=== PATIENT | female | born 1940 | race Caucasian/White ===

== ENCOUNTER → 2018-08-13 | Outpatient (CLI) | payer MEDICARE ==
--- NOTE | 2018-08-14 10:58 | MM ---
Reason for exam: screening (asymptomatic). Last mammogram was performed 1 year and 4 months ago. History: Patient is postmenopausal. Family history of breast cancer in 2 maternal aunts. Benign excisional biopsy of the right breast. Took estrogen beginning at age 36. Physical Findings: A clinical breast exam by your physician is recommended on an annual basis and results should be correlated with mammographic findings. MG Screening Mammo w CAD Bilateral CC and MLO view(s) were taken. Prior study comparison: April 22, 2017, bilateral MG 3d screening mammo w/cad. November 07, 2015, bilateral MG 3d screening mammo w/cad. The breast tissue is heterogeneously dense. This may lower the sensitivity of mammography. Benign appearing bilateral calcifications. No suspicious abnormality. No significant changes when compared with prior studies. ASSESSMENT: Benign, BI-RAD 2 RECOMMENDATION: Routine screening mammogram of both breasts in 1 year.
== END | disposition home or self-care (01) ==
LOC: RADMAMWWP 09:33
PROVIDERS: ATTEND Family Medicine
DX: Z12.31 Encounter for screening mammogram for malignant neoplasm of breast (principal)
CPT/HCPCS: 77067

== ENCOUNTER → 2020-02-24 | Outpatient (CLI) | payer MEDICARE ==
--- NOTE | 2020-02-24 08:25 | CT ---
EXAMINATION TYPE: CT brain wo con DATE OF EXAM: 02/24/2020 HISTORY: Numbness and weakness to extremities, feels sense of falling. CT DLP: 945.5 mGycm. Automated Exposure Control for Dose Reduction was Utilized. TECHNIQUE: CT scan of the head is performed without contrast. COMPARISON: None. FINDINGS: There is no acute intracranial hemorrhage or midline shift identified. There is diffuse v entricular and sulcal prominence consistent with diffuse age-related cerebral atrophy. There is low- attenuation in the periventricular white matter most likely on basis of product of chronic small vess el ischemic change in patient of this age. Hyperostosis frontalis. Moderate calcified plaque suprac linoid segment left internal carotid artery. Visualized paranasal sinuses are clear. Visualized globe s are intact bilaterally. IMPRESSION: No acute intracranial hemorrhage or midline shift. There is mild diffuse age-related ce rebral atrophy and moderate chronic small vessel ischemic change noted.
== END | disposition home or self-care (01) ==
LOC: RADCTMAIN 07:45
PROVIDERS: ATTEND Psychiatry & Neurology Neurology
DX: I67.82 Cerebral ischemia (principal); G31.1 Senile degeneration of brain, not elsewhere classified
CPT/HCPCS: 70450

== ENCOUNTER → 2023-03-08 | Outpatient (CLI) | payer MEDICARE ==
--- NOTE | 2023-03-08 11:50 | XR ---
EXAMINATION TYPE: XR chest 2V DATE OF EXAM: 03/08/2023 COMPARISON: 10/31/2015 HISTORY: Shortness of breath TECHNIQUE: Frontal and lateral views of the chest are obtained. FINDINGS: Scattered senescent parenchymal changes noted. Hyperinflation compatible with COPD. No evidence for infiltrate. No evidence for atelectasis. Heart size is stable. Mediastinal structures are stable and grossly unremarkable. No evidence for hilar prominence. Degenerative changes dorsal spine. IMPRESSION: 1. No evidence for acute pulmonary disease.
== END | disposition home or self-care (01) ==
LOC: LABWHC1 11:25
PROVIDERS: ATTEND Family Medicine
DX: R05.9 Cough, unspecified (principal); R06.02 Shortness of breath
CPT/HCPCS: 71046

== ENCOUNTER 2023-04-27 11:38 | Observation (INO) | payer MEDICARE ==
[2023-04-27] MEDS ORDERED: SODIUM CHLORIDE 0.9% 1,000 ML IV STA (12:24)
[2023-04-27] MEDS ORDERED: PANTOPRAZOLE 40 MG/10 ML VIAL IVP STA (12:24)
--- NOTE | 2023-04-27 12:29 | ED ---
General Adult HPI - General Chief complaint: Abdominal Pain Stated complaint: ab pain Time Seen by Provider: 04/27/23 11:56 Source: patient, family, RN notes reviewed Mode of arrival: wheelchair Limitations: no limitations - History of Present Illness Initial comments: Patient is a pleasant 83-year-old female presenting to the emergency department with concerns with abdominal problems. Patient has had frequent UTIs recently and has been on antibiotics. Patient is having decreased urine output. Patient is still tolerating oral intake. Patient does not eat much normally. Patient sometimes has constipation or diarrhea associated with food. Patient has been more fatigued and generally weak lately. No isolated area of weakness. Patient has had some discomfort however denies any at this time. Family questions gallbladder problems or urine problems. Patient has had somewhat darker stool. The patient gets UTIs she is wheelchair-bound. - Related Data Home Medications Medication Instructions Recorded Confirmed Aspirin 81 mg PO DAILY 03/07/16 03/08/16 Calcium Carbonate/Vitamin D3 1 each PO DAILY 03/07/16 03/08/16 [Caltrate 600 Plus D3 Tablet] Levothyroxine Sodium [Levoxyl] 75 mcg PO QAM 03/07/16 03/08/16 Loratadine [Claritin] 10 mg PO DAILY PRN 03/07/16 03/08/16 Losartan Potassium 100 mg PO QAM 03/07/16 03/08/16 Simvastatin [Zocor] 20 mg PO HS 03/07/16 03/08/16 Allergies Allergy/AdvReac Type Severity Reaction Status Date / Time corn AdvReac migraines Verified 03/07/16 08:32 Review of Systems ROS Statement: Those systems with pertinent positive or pertinent negative responses have been documented in the HPI. ROS Other: All systems not noted in ROS Statement are negative. Constitutional: Denies: fever Eyes: Denies: eye pain ENT: Denies: throat pain Respiratory: Denies: cough Cardiovascular: Denies: chest pain Endocrine: Reports: fatigue Gastrointestinal: Reports: as per HPI, abdominal pain Genitourinary: Reports: as per HPI (Decreased urination) Skin: Reports: rash (Anterior neck) Neurological: Reports: weakness. Denies: headache Past Medical History Past Medical History: Dementia, Hyperlipidemia, Hypertension, Thyroid Disorder History of Any Multi-Drug Resistant Organisms: None Reported Past Surgical History: Hysterectomy, Tonsillectomy Additional Past Surgical History / Comment(s): marc cataracts Past Anesthesia/Blood Transfusion Reactions: No Reported Reaction Past Psychological History: No Psychological Hx Reported Smoking Status: Never smoker Past Alcohol Use History: None Reported Past Drug Use History: None Reported - Past Family History Mother Family Medical History: No Reported History Father Family Medical History: Myocardial Infarction (IA) Additional Family Medical History / Comment(s): heart problems Brother(s) Family Medical History: Coronary Artery Disease (CAD) Additional Family Medical History / Comment(s): heart stents General Exam Limitations: no limitations General appearance: alert, in no apparent distress Head exam: Present: normocephalic Eye exam: Present: normal appearance Neck exam: Present: normal inspection Respiratory exam: Present: normal lung sounds bilaterally Cardiovascular Exam: Present: regular rate, normal rhythm Expanded Peripheral pulses: 2+: Dorsalis Pedis (R), Dorsalis Pedis (L) GI/Abdominal exam: Present: soft, tenderness (Mild tenderness lower abdomen). Absent: distended, pulsatile mass Extremities exam: Present: normal inspection Neurological exam: Present: alert. Absent: motor sensory deficit Psychiatric exam: Present: flat affect Skin exam: Present: normal color, other (Minimal erythematous rash anterior neck) Course Vital Signs 04/27/23 11:45 Temperature 97.4 F L Pulse Rate 86 Respiratory 18 Rate Blood Pressure 120/74 O2 Sat by Pulse 95 Oximetry Medical Decision Making - Medical Decision Making Was pt. sent in by a medical professional or institution (, PA, FIRE POT OPERATOR, urgent care, hospital, or group home...) When possible be specific @ -No Did you speak to anyone other than the patient for history (EMS, parent, family, police, friend...)? What history was obtained from this source @ -Family is present and provides majority of history is patient is somewhat a poor historian Did you review nursing and triage notes (agree or disagree)? Why? @ -I reviewed and agree with nursing and triage notes Were old charts reviewed (outside hosp., previous admission, EMS record, old EKG, old radiological studies, urgent care reports/EKG's, group home records)? Report findings @ -No old charts were reviewed Differential Diagnosis (chest pain, altered mental status, abdominal pain women, abdominal pain men, vaginal bleeding, weakness, fever, dyspnea, syncope, headache, dizziness, GI bleed, back pain, seizure, CVA, palpatations, mental health, musculoskeletal)? @ -Differential Abdominal Pain Women: Appendicitis, Cholecystitis, diverticulosis, ischemic bowel, pancreatitis, hepatitis, UTI, gastroenteritis, AAA, incarcerated hernia, bowel obstruction, constipation, inflammatory bowel, hepatitis, peptic ulcer disease, splenic infarction, perforated viscus, vulvitis, ovarian torsion, PID, kidney stone, placenta abruption, this is not meant to be an all-inclusive list EKG interpreted by me (3pts min.). @ -As above X-rays interpreted by me (1pt min.). @ -None done CT interpreted by me (1pt min.). @ -Computed tomography scan does show some cholelithiasis U/S interpreted by me (1pt. min.). @ -Negative for DVT What testing was considered but not performed or refused? (CT, X-rays, U/S, labs)? Why? @ -None What meds were considered but not given or refused? Why? @ -None Did you discuss the management of the patient with other professionals (professionals i.e. , PA, FIRE POT OPERATOR, lab, RT, psych nurse, social scientist, clinical program consultant, teacher, president and chief executive officer, wrapper caser)? Give summary @ -Case was discussed with Dr. Gonsalez who did evaluate patient and will admit covering for Dr. Myers. Was smoking cessation discussed for >3mins.? @ -No Was critical care preformed (if so, how long)? @ -No Were there social determinants of health that impacted care today? How? (Homelessness, low income, unemployed, alcoholism, drug addiction, transportation, low edu. Level, literacy, decrease access to med. care, intermediate, rehab)? @ -No Was there de-escalation of care discussed even if they declined (Discuss DNR or withdrawal of care, Hospice)? DNR status @ -No What co-morbidities impacted this encounter? (DM, HTN, Smoking, COPD, CAD, Cancer, CVA, ARF, Chemo, Hep., AIDS, mental health diagnosis, sleep apnea, morbid obesity)? @ -None Was patient admitted / discharged? Hospital course, mention meds given and route , prescriptions, significant lab abnormalities, going to OR and other pertinent info. @ -Patient has had multiple recurrent urinary tract infections despite 3 doses of oral antibiotics. Patient will be admitted with IV antibiotics. Admission orders written. Undiagnosed new problem with uncertain prognosis? @ -No Drug Therapy requiring intensive monitoring for toxicity (Heparin, Nitro, Insulin, Cardizem)? @ -No Were any procedures done? @ -No Diagnosis/symptom? @ -Urinary tract infection Acute, or Chronic, or Acute on Chronic? @ -Acute Uncomplicated (without systemic symptoms) or Complicated (systemic symptoms)? @ -default Side effects of treatment? @ -No Exacerbation, Progression, or Severe Exacerbation? @ -No Poses a threat to life or bodily function? How? (Chest pain, USA, IA, pneumonia, PE, COPD, DKA, ARF, appy, cholecystitis, CVA, Diverticulitis, Homicidal, Suicidal, threat to staff... and all critical care pts) @ -No - Lab Data Result diagrams: 04/27/23 12:41 04/27/23 12:41 Lab Results 04/27/23 04/27/23 04/27/23 Range/Units 12:41 12:41 12:41 WBC 9.5 (3.8-10.6) k/uL RBC 4.39 (3.80-5.40) m/uL Hgb 13.6 (11.4-16.0) gm/dL Hct 39.0 (34.0-46.0) % MCV 89.0 (80.0-100.0) fL MCH 31.1 (25.0-35.0) pg MCHC 34.9 (31.0-37.0) g/dL RDW 15.5 (11.5-15.5) % Plt Count 282 (150-450) k/uL MPV 7.4 Neutrophils % 57 % Lymphocytes % 30 % Monocytes % 8 % Eosinophils % 2 % Basophils % 1 % Neutrophils # 5.4 (1.3-7.7) k/uL Lymphocytes # 2.9 (1.0-4.8) k/uL Monocytes # 0.8 (0-1.0) k/uL Eosinophils # 0.2 (0-0.7) k/uL Basophils # 0.1 (0-0.2) k/uL Sodium 136 L (137-145) mmol/L Potassium 3.7 (3.5-5.1) mmol/L Chloride 98 (98-107) mmol/L Carbon Dioxide 27 (22-30) mmol/L Anion Gap 11 mmol/L BUN 13 (7-17) mg/dL Creatinine 0.77 (0.52-1.04) mg/dL Est GFR (CKD-EPI)AfAm 83 (>60 ml/min/1.73 sqM) Est GFR (CKD-EPI)NonAf 72 (>60 ml/min/1.73 sqM) Glucose 102 H (74-99) mg/dL Calcium 9.6 (8.4-10.2) mg/dL Total Bilirubin 0.5 (0.2-1.3) mg/dL AST 24 (14-36) U/L ALT 16 (4-34) U/L Alkaline Phosphatase 83 (38-126) U/L Total Protein 7.3 (6.3-8.2) g/dL Albumin 4.1 (3.5-5.0) g/dL Amylase 81 (30-110) U/L Lipase 179 (23-300) U/L Urine Color Yellow Urine Appearance Slightly Cloudy H (Clear) Urine pH 6.5 (5.0-8.0) Ur Specific [place]man 1.010 (1.001-1.035) Urine Protein Negative (Negative) Urine Glucose (UA) Negative (Negative) Urine Ketones Negative (Negative) Urine Blood Trace (Negative) Urine Nitrite Negative (Negative) Urine Bilirubin Negative (Negative) Urine Urobilinogen <2.0 (<2.0) mg/dL Ur Leukocyte Esterase Large (Negative) Urine RBC 8 H (0-5) /hpf Urine WBC >182 H (0-5) /hpf Urine WBC Clumps Few H (None) /hpf Ur Squamous Epith Cells <1 (0-4) /hpf Urine Bacteria Occasional H (None) /hpf Hyaline Casts 1 (0-2) /lpf Urine Mucus Rare H (None) /hpf Disposition Clinical Impression: Urinary tract infection Disposition: ADMITTED IP TO THIS HOSP Is patient prescribed a controlled substance at d/c from ED?: No Referrals: Matthew Myers DO [Primary Care Provider] - 1-2 days Time of Disposition: 15:16
[2023-04-27 13:32] LABS: ALT 16 U/L (4-34); AST 24 U/L (14-36); African American GFR (CKD) 83 (>60 ml/min/1.73 sqM); Albumin 4.1 g/dL (3.5-5.0); Alkaline Phosphatase 83 U/L (38-126); Amylase 81 U/L (30-110); Anion Gap 11 mmol/L; Blood Urea Nitrogen 13 mg/dL (7-17); Calcium 9.6 mg/dL (8.4-10.2); Carbon Dioxide 27 mmol/L (22-30); Chloride 98 mmol/L (98-107); Glucose 102 mg/dL (74-99); Lipase 179 U/L (23-300); Non-African American GFR(CKD) 72 (>60 ml/min/1.73 sqM); Potassium 3.7 mmol/L (3.5-5.1); Sodium 136 mmol/L (137-145); Total Bilirubin 0.5 mg/dL (0.2-1.3); Total Protein 7.3 g/dL (6.3-8.2)
[2023-04-27 13:33] LABS: Basophils # (A) 0.1 k/uL (0-0.2); Basophils % (A) 1 %; Eosinophils # (A) 0.2 k/uL (0-0.7); Eosinophils % (A) 2 %; HGB 13.6 gm/dL (11.4-16.0); Lymphocytes # (A) 2.9 k/uL (1.0-4.8); Lymphocytes % (A) 30 %; MCH 31.1 pg (25.0-35.0); MCHC 34.9 g/dL (31.0-37.0); Mean Platelet Volume 7.4; Monocytes # (A) 0.8 k/uL (0-1.0); Monocytes % (A) 8 %; Neutrophils # (A) 5.4 k/uL (1.3-7.7); Neutrophils % (A) 57 %; Platelet Count 282 k/uL (150-450); RBC 4.39 m/uL (3.80-5.40); RDW 15.5 % (11.5-15.5); WBC 9.5 k/uL (3.8-10.6)
[2023-04-27 13:41] LABS: Bacteria,Urine Occasional /hpf; Hyaline Casts,Urine 1 /lpf (0-2); Mucus,Urine Rare /hpf; RBC,Urine 8 /hpf (0-5); Squamous Epithelial Cell,Urine <1 /hpf (0-4); WBC,Urine >182 /hpf (0-5)
[2023-04-27 13:43] LABS: Appearance,Urine Slightly Cloudy (Clear); Color,Urine Yellow
[2023-04-27 13:44] LABS: Bilirubin,Urine Negative (Negative); Blood,Urine Trace (Negative); Glucose,Urine (UA) Negative (Negative); Ketones,Urine Negative (Negative); Leukocyte Esterase,Urine Large (Negative); Nitrite,Urine Negative (Negative); PH, Urine 6.5 (5.0-8.0); Protein,Urine Negative (Negative); Urobilinogen,Urine <2.0 mg/dL (<2.0)
--- NOTE | 2023-04-27 13:57 | US ---
EXAMINATION TYPE: US venous doppler duplex LE RT DATE OF EXAM: 04/27/2023 1:17 PM COMPARISON: NONE CLINICAL INDICATION: Female, 83 years old with history of pain; Right foot swelling SIDE PERFORMED: Right TECHNIQUE: The lower extremity deep venous system is examined utilizing real time linear array sonog shila with graded compression, doppler sonography and color-flow sonography. VESSELS IMAGED: Common Femoral Vein Deep Femoral Vein Greater Saphenous Vein * Femoral Vein Popliteal Vein Small Saphenous Vein * Proximal Calf Veins (* superficial vessels) Right Leg: Negative for DVT IMPRESSION: 1. Right lower extremity ultrasound negative for deep venous thrombosis.
--- NOTE | 2023-04-27 15:04 | CT ---
EXAMINATION TYPE: CT abdomen pelvis w con DATE OF EXAM: 04/27/2023 COMPARISON: None INDICATION: abd pain DLP: 614.3 mGycm, Automated exposure control for dose reduction was used. CONTRAST: 100 mL of Isovue 300. Study performed without Oral Contrast TECHNIQUE: Axial images were obtained from above the diaphragm to the pubic rami in the axial plane a t 5 mm thick sections. Reconstructed images are reviewed on the computer in the coronal plane. FINDINGS: Limited CT sections are obtained the lung bases. There is mild compressive atelectasis at the right lung base.. CT ABDOMEN: Liver: Normal Spleen: Normal Pancreas: Normal Adrenal glands: The adrenal glands are normal. Gallbladder: Calcified gallstone. Kidneys: No masses are evident. No hydronephrosis is present. No cysts are present. There is likel y a calcification within the mid right kidney. No hydronephrosis or hydroureter. Aorta: Vascular calcification is within the aorta. Inferior vena cava: Normal. CT PELVIS: Loops of bowel within the abdomen and pelvis are normal. There are loops of bowel which are incom pletely distended or lack oral contrast limiting their evaluation. Appendix: Normal as visualized. Urinary bladder: Normal. Genitourinary structures: Uterus and ovaries are not identified. Osseous structures: No suspicious lytic or sclerotic lesions. Degenerative disc changes are present i n the L5-S1 level. IMPRESSION: 1. Cholelithiasis. 2. Nonobstructing right renal stone. 3. Minimal compressive atelectasis right lung base
[2023-04-27] MEDS ORDERED: NALOXONE 0.4 MG/ML 1 ML VIAL IV PRN (15:19)
[2023-04-27] MEDS ORDERED: ACETAMINOPHEN TAB 325 MG TAB PO PRN (15:19)
[2023-04-27] MEDS ORDERED: LACTULOSE 20 GM/30 ML CUP PO PRN (15:27)
[2023-04-27] MEDS: SODIUM CHLORIDE 0.9% 1,000 ML IV SCH (15:37)
[2023-04-27] MEDS ORDERED: DOCUSATE 100 MG CAP PO STA (15:54)
--- NOTE | 2023-04-27 20:33 | P.CON ---
Consult Note - . Consult date: 04/27/23 Assessment/Plan:: CC abdominal discomfort, patient has history of dementia and is a very poor historian. History is obtained primarily from medical record HPI: Patient has had intermittent abdominal discomfort, along with frequent urinary tract infections. Patient continues to eat per family, occasional constipation or diarrhea is noted. Per family patient appears more fatigued and weak in the recent past in the emergency department a computed tomography scan of the abdomen was performed demonstrating cholelithiasis but no evidence of acute cholecystitis. Urinalysis demonstrates 3+ leukocyte esterase and WBC greater than 100. Per RN patient was retaining urine and had approximately 1500 mL out catheterization. PMH: Dementia hypertension, hyperlipidemia, hypothyroid PSH; hysterectomy, tonsillectomy Social; lives with PE; elderly female, no acute distress Sclerae clear nonicteric Chest clear to auscultation Heart regular rate and rhythm Abdomen nondistended, soft, no significant tenderness Neuro orientated 1, moves all 4 extremities, strength 5 over 5 Labs; hemoglobin 13.6, WBC 9.5, platelets 282, electrolytes within normal limits, BUNs and 13, creatinine 0.8, glucose 102 Imaging; no DVT per duplex, CT notes cholelithiasis without evidence of inflammation Assessment and plan; 83-year-old female with likely urinary tract infection and retention causing abdominal discomfort. Doubt cholecystitis or biliary colic. Should patient's symptoms failed to resolve with treatment of her urinary tract issues a ultrasound of the gallbladder and HIDA scan could be entertained but yield is likely low. Diet as tolerated, your medical care, consider urology consult.
[2023-04-27] MEDS: ATORVASTATIN 10 MG TAB PO SCH (21:43)
[2023-04-27] MEDS: DONEPEZIL 10 MG TAB PO SCH (21:43)
[2023-04-27] MEDS: HEPARIN SODIUM,PORCINE 5,000 UNIT/ML 1 ML VIAL SQ SCH (21:44)
--- NOTE | 2023-04-27 21:46 | HP ---
HISTORY AND PHYSICAL CHIEF COMPLAINT: Lower abdominal pain. HISTORY OF PRESENT ILLNESS: This is an 83-year-old woman with a past medical history of multiple medical problems, recurrent UTIs recently. The patient is complaining of lower abdominal pain. The patient also had decreased urine output, and the patient had some constipation and diarrhea, and the patient is admitted for further evaluation. There is no history of any fever, rigors, or chills. PAST MEDICAL HISTORY: Dementia, hypertension, hyperlipidemia, rest of the history and rest of chart is also reviewed. HOME MEDICATIONS: Reviewed, Zocor, dose and rest of medications noted, but not confirmed. ALLERGIES: n FAMILY HISTORY, SOCIAL HISTORY, REVIEW OF SYSTEMS: Could not be taken because of the patient's baseline mental status. PHYSICAL EXAMINATION: VITAL SIGNS: Pulse is 86, blood pressure 120/70, respirations 18. HEENT: Normal. NECK: No jugular venous distention. CARDIOVASCULAR: S1, S2. RESPIRATIONS: Breath sounds diminished at the bases. No rhonchi, no crackles. ABDOMEN: Soft, mild diffuse tenderness in the lower abdomen. No guarding, no rigidity. No masses palpable. LEGS: No edema, no swelling. NERVOUS SYSTEM: No focal deficits. SKIN: No ulcer, rash, bleeding. JOINTS: No active deforming arthropathy. LABORATORY DATA: Reviewed. CAT scan reviewed. ASSESSMENT: 1. Lower abdominal pain with recurrent UTI with failure of outpatient treatment. 2. Possible constipation. 3. Cholelithiasis, asymptomatic. 4. Dementia. 5. Hypertension. 6. Hyperlipidemia. 7. Multiple complex medical issues. RECOMMENDATIONS: This 83-year-old woman presented with multiple complex medical issues, we will monitor the patient closely. Recommended empiric antibiotics. Obtain cultures. Resume home medications. Surgical evaluation. Prognosis guarded because of multiple complex medical conditions. Further recommendations to follow. See orders for details. MMODL / IJN: [id number] / MTDD
[2023-04-28] MEDS: amLODIPine 5 MG TAB PO SCH ×2 (01:10→12:31)
[2023-04-28] MEDS: SODIUM CHLORIDE 0.9% 1,000 ML IV SCH (05:24)
[2023-04-28] MEDS: LEVOTHYROXINE 100 MCG TAB PO SCH (05:40)
[2023-04-28] MEDS: CALCIUM CARB-VIT D 500 MG-5 MCG TAB PO SCH (08:23)
[2023-04-28] MEDS: MULTIVITAMINS, THERA 1 EACH TAB PO SCH (08:23)
[2023-04-28] MEDS: hydroCHLOROthiazide 12.5 MG CAP PO SCH (08:23)
[2023-04-28] MEDS: ASPIRIN 81 MG PO SCH (08:23)
[2023-04-28] MEDS: HEPARIN SODIUM,PORCINE 5,000 UNIT/ML 1 ML VIAL SQ SCH ×2 (08:23→20:34)
[2023-04-28] MEDS: LORATADINE 10 MG TAB PO SCH (08:23)
[2023-04-28] MEDS: LOSARTAN 50 MG TAB PO SCH (08:23)
[2023-04-28 10:15] LABS: Basophils # (A) 0.1 k/uL (0-0.2); Basophils % (A) 1 %; Eosinophils # (A) 0.2 k/uL (0-0.7); Eosinophils % (A) 3 %; HCT 41.2 % (34.0-46.0); HGB 13.3 gm/dL (11.4-16.0); Lymphocytes # (A) 2.7 k/uL (1.0-4.8); Lymphocytes % (A) 31 %; MCH 29.5 pg (25.0-35.0); MCHC 32.4 g/dL (31.0-37.0); MCV 91.3 fL (80.0-100.0); Mean Platelet Volume 7.7; Monocytes # (A) 0.5 k/uL (0-1.0); Monocytes % (A) 6 %; Neutrophils # (A) 4.8 k/uL (1.3-7.7); Neutrophils % (A) 57 %; Platelet Count 294 k/uL (150-450); RBC 4.52 m/uL (3.80-5.40); RDW 15.5 % (11.5-15.5); WBC 8.5 k/uL (3.8-10.6)
[2023-04-28 11:05] LABS: ALT 15 U/L (4-34); AST 24 U/L (14-36); African American GFR (CKD) >90 (>60 ml/min/1.73 sqM); Albumin 3.8 g/dL (3.5-5.0); Albumin/Globulin Ratio 1.2; Alkaline Phosphatase 96 U/L (38-126); Anion Gap 14 mmol/L; Blood Urea Nitrogen 6 mg/dL (7-17); Calcium 9.3 mg/dL (8.4-10.2); Carbon Dioxide 22 mmol/L (22-30); Chloride 102 mmol/L (98-107); Globulin 3.2 g/dL; Glucose 83 mg/dL (74-99); Non-African American GFR(CKD) 87 (>60 ml/min/1.73 sqM); Potassium 3.7 mmol/L (3.5-5.1); Sodium 138 mmol/L (137-145); Total Bilirubin 0.5 mg/dL (0.2-1.3)
[2023-04-28] MEDS ORDERED: diphenhydrAMINE 25 MG CAP PO PRN (11:27)
[2023-04-28] MEDS ORDERED: methylPREDNISolone SOD SUCCI 125 MG/2 ML VIAL IV STA (11:27)
--- NOTE | 2023-04-28 14:03 | US ---
EXAMINATION TYPE: US kidneys/renal and bladder DATE OF EXAM: 04/28/2023 COMPARISON: CT 04/27/2023 CLINICAL INDICATION: Female, 83 years old with history of back and abd pain, uti; Pain, UTI. EXAM MEASUREMENTS: Right Kidney: 10.1 x 5.1 x 4.3 cm Left Kidney: 10.2 x 5.1 x 4.6 cm Right Kidney: 2 hyperechoic foci with posterior shadowing seen within upper-mid pole. Larger area moon sures 1.3 x .8 x 0.4 cm. Left Kidney: No hydronephrosis or masses seen Bladder: Unable to evaluate. Catheter in place. IMPRESSION: 1. No evidence of obstructive uropathy. 2. Nonobstructive right renal calculi.
[2023-04-28] MEDS: amLODIPine 10 MG TAB PO SCH (16:06)
--- NOTE | 2023-04-28 16:45 | P.PN ---
Subjective Progress Note Date: 04/28/23 CHIEF COMPLAINT: Gallstones HISTORY OF PRESENT ILLNESS: The patient is a 83-year-old female admitted for urinary tract infection. Diagnostic studies demonstrated gallstones. No reports of abdominal pain. Daughter at bedside as patient has moderate dementia and memory impairment. On exam, no abdominal pain. No reports of fatty food intolerance. ROS: No reports of nausea and vomiting. No bowel movements. No fevers or chills. No new chest pain. No productive sputum PHYSICAL EXAM: VITAL SIGNS: Reviewed CONSTITUTIONAL: Well developed and in no acute distress. EYES: Conjuctivae without sclera icterus. Extraocular movements grossly intact. HEAD, EARS, NOSE, THROAT: Moist buccal mucosa. Head is atraumatic, normocephalic. Hears conversational speech. No nasal drainage. RESPIRATORY: Non-labored respirations and equal bilateral excursions. CARDIOVASCULAR: Palpable 2+ radial pulses. ABDOMEN: Nontender. No peritonitis. MUSCULOSKELETAL: No gross deformity of the lower extremities noted. No clubbing. No cyanosis. SKIN: Good skin turgor. Well perfused. NEUROLOGIC: Cranial nerves II through XII grossly intact. No focal or lateralizing signs. PSYCH: Alert to self. CLINICAL LABS: Reviewed. WBC normal. LFTs normal. STUDIES: CT abdomen and pelvis independent reviewed demonstrates gallstone. This is my independent interpretation. REPORTS: US bladder demonstrate kidney stone. ASSESSMENT: 1. Abnormal computed tomography scan for gallstones 2. Dementia 3. Kidney stone PLAN: 1. Due to limited subjective findings recommend HIDA scan to exclude actue cholecystitis. 2. Care plan reviewed with family. 3. Diet as tolerated Objective - Vital Signs Vital signs: Vital Signs Temp 97.6 F 04/28/23 13:33 Pulse 82 04/28/23 13:33 Resp 19 04/28/23 13:33 BP 136/76 04/28/23 13:33 Pulse Ox 97 04/28/23 13:33 FiO2 Intake & Output 04/27/23 04/28/23 04/28/23 18:59 06:59 18:59 Intake Total 900 Output Total 1200 1300 Balance -1200 -400 Weight 57.425 kg Intake: Intake, IV Titration 900 Amount Sodium Chloride 0.9% 1, 900 000 ml @ 75 mls/hr IV . [id number] [facility] Rx#:[id number] Output: Urine 1200 1300 Straight 1200 1300 Other: Voiding Method Toilet Indwelling Catheter # Voids 2 - Labs CBC & Chem 7: 04/29/23 05:53 04/29/23 05:53 Labs: Abnormal Lab Results - Last 24 Hours (Table) 04/28/23 Range/Units 08:21 BUN 6 L (7-17) mg/dL
--- NOTE | 2023-04-28 17:29 | PN ---
PROGRESS NOTE DATE OF SERVICE: 04/28/2023 SUBJECTIVE: This is an 83-year-old woman, who was admitted with lower abdominal pain with recurrent UTI. She is being closely monitored. No chest pain. No palpitations. No fever. The patient is on broad-spectrum IV antibiotics. Cultures are pending. PHYSICAL EXAMINATION: VITAL SIGNS: Pulse is 62, blood pressure 187/81, respirations 19. CHEST: Clear to auscultation. CARDIOVASCULAR: S1 and S2 muffled. ABDOMEN: Soft. NERVOUS SYSTEM: Nonfocal. LABORATORY DATA: Reviewed. ASSESSMENT: 1. Lower abdominal pain with recurrent urinary tract infection with failure of outpatient treatment. 2. Hypertension. 3. Possible constipation. 4. Cholelithiasis, asymptomatic. 5. Dementia. 6. Hypertension. 7. Hyperlipidemia. 8. Multiple complex medical issues. RECOMMENDATIONS: Recommend to continue current medical management. Continue symptomatic treatment. Otherwise, at this time, I would recommend adding Norvasc to the current regimen. Monitor blood pressure closely. Surgical input appreciated. Further recommendations to follow. MMODL / IJN: [id number] /
[2023-04-28] MEDS: DONEPEZIL 10 MG TAB PO SCH (20:33)
[2023-04-28] MEDS: ATORVASTATIN 10 MG TAB PO SCH (20:33)
[2023-04-29] MEDS: LEVOTHYROXINE 100 MCG TAB PO SCH (05:44)
[2023-04-29 08:38] LABS: Basophils # (A) 0.09 X 10*3/uL (0.00-0.10); Eosinophils # (A) 0.17 X 10*3/uL (0.04-0.35); Eosinophils % (A) 1.8 %; Lymphocytes # (A) 2.33 X 10*3/uL (0.90-5.00); Lymphocytes % (A) 24.7 %; MCH 28.8 pg (27.0-32.0); MCHC 32.4 g/dL (32.0-37.0); MCV 88.9 FL (80.0-97.0); Mean Platelet Volume 9.4 FL (9.5-12.2); Monocytes # (A) 0.73 X 10*3/uL (0.20-1.00); Monocytes % (A) 7.7 %; NRBC Per 100 WBC 0 X 10*3/uL (0.00-0.01); Neutrophils # (A) 6.07 X 10*3/uL (1.80-7.70); Neutrophils % (A) 64.4 %; Platelet Count 267 X 10*3/uL (140-440); RBC 4.16 X 10*6/uL (4.10-5.20); RDW 15.9 % (11.5-14.5); WBC 9.43 X 10*3/uL (4.50-10.00)
[2023-04-29 08:56] LABS: BUN/Creat Ratio 14.14 Ratio (12.00-20.00); Blood Urea Nitrogen 9.9 mg/dL (9.0-27.0); Calcium 9.3 mg/dL (8.7-10.3); Carbon Dioxide 24.1 mmol/L (21.6-31.8); Chloride 103 mmol/L (96-109); Glucose 106 mg/dL (70-110); Sodium 138 mmol/L (135-145)
[2023-04-29] MEDS: CALCIUM CARB-VIT D 500 MG-5 MCG TAB PO SCH (09:29)
[2023-04-29] MEDS: ASPIRIN 81 MG PO SCH (09:29)
[2023-04-29] MEDS: LORATADINE 10 MG TAB PO SCH (09:29)
[2023-04-29] MEDS: MULTIVITAMINS, THERA 1 EACH TAB PO SCH (09:29)
[2023-04-29] MEDS: HEPARIN SODIUM,PORCINE 5,000 UNIT/ML 1 ML VIAL SQ SCH (09:29)
[2023-04-29] MEDS: hydroCHLOROthiazide 12.5 MG CAP PO SCH (09:29)
[2023-04-29] MEDS: amLODIPine 10 MG TAB PO SCH (09:29)
[2023-04-29] MEDS: LOSARTAN 50 MG TAB PO SCH (09:29)
--- NOTE | 2023-04-29 09:33 | NM ---
EXAMINATION TYPE: NM hepatobiliary wo EF DATE OF EXAM: 04/29/2023 9:00 AM COMPARISON: CT abdomen pelvis most recent from 04/27/2023. CLINICAL INDICATION:Female, 83 years old with history of Cholecystitis abdominal pain; TECHNIQUE: The patient was given 4.4 mCi of Technetium 99m-Mebrofenin as a radiotracer and multiple scintigraphic images were obtained of the abdomen. FINDINGS: Normal uptake of radiotracer was identified within the liver with excretion into the hepatic and comm on biliary ducts within 14 minutes. There was normal progressive washout of the liver over the course of the study. Radiotracer uptake within the gallbladder at 10 minutes as well as small bowel activit y was identified at 30 minutes. IMPRESSION: Normal hepatobiliary scan.
[2023-04-29] MEDS ORDERED: TAMSULOSIN 0.4 MG CAP.ER.24H PO SCH (11:45)
--- NOTE | 2023-04-29 14:04 | P.PN ---
Subjective Progress Note Date: 04/29/23 CHIEF COMPLAINT: Abdominal pain HISTORY OF PRESENT ILLNESS: Patient sitting up in bedside chair. She reports no abdominal pain. She is tolerating diet. Computed tomography scan noted cholelithiasis. HIDA scan completed which was normal. Afebrile. WBC 9.43 PHYSICAL EXAM: VITAL SIGNS: Reviewed GENERAL: Well-developed in no acute distress. HEENT: No sclera icterus. Extraocular movements grossly intact. Moist buccal mucosa. Head is atraumatic, normocephalic. Hears conversational speech. No nasal drainage. NECK: Supple without lymphadenopathy. CHEST: Non-labored respirations and equal bilateral excursions. CARDIOVASCULAR: Palpable 2+ radial pulses. ABDOMEN: Soft. Nondistended. Nontender. MUSCULOSKELETAL: No clubbing or cyanosis. NEUROLOGIC: No focal or lateralizing signs. Cranial nerves II through XII grossly intact. PSYCH: Appropriate affect. Alert and oriented to person, place and time. SKIN: Well perfused. Good skin turgor. ASSESSMENT: 1. Abdominal pain resolved 2. Asymptomatic Cholelithiasis. HIDA scan normal 3. Urinary retention PLAN: -Patient can be discharged from surgical standpoint when medically cleared -No surgical intervention planned -Urinary retention management per medicine service Physician Black Puller note has been reviewed by physician. Signing provider agrees with the documented findings, assessment, and plan of care. CHIEF COMPLAINT: Gallstones HISTORY OF PRESENT ILLNESS: The patient is a 83-year-old female admitted for ur inary tract infection. Diagnostic studies demonstrated gallstones. She denies abdominal pain and is tolerating diet. ROS: No reports of nausea and vomiting. No fevers or chills. No new chest pain. No productive sputum PHYSICAL EXAM: VITAL SIGNS: Reviewed CONSTITUTIONAL: Well developed and in no acute distress. EYES: Conjuctivae without sclera icterus. Extraocular movements grossly intact. HEAD, EARS, NOSE, THROAT: Moist buccal mucosa. Head is atraumatic, normocephalic. Hears conversational speech. No nasal drainage. RESPIRATORY: Non-labored respirations and equal bilateral excursions. CARDIOVASCULAR: Palpable 2+ radial pulses. ABDOMEN: Nontender. No peritonitis. MUSCULOSKELETAL: No gross deformity of the lower extremities noted. No clubbing. No cyanosis. SKIN: Good skin turgor. Well perfused. NEUROLOGIC: Cranial nerves II through XII grossly intact. No focal or late ralizing signs. PSYCH: Alert to self. CLINICAL LABS: Reviewed. WBC normal. LFTs normal. STUDIES: HIDA scan reviewed demonstrates immediate visualization of gallbladder excluding acute cholecystitis. This is my independent interpretation. ASSESSMENT: 1. Abnormal computed tomography scan for gallstones 2. Dementia 3. Kidney stone PLAN: 1. No surgical intervention at this time 2. Management for urinary tract infection 3. Stable for discharge from a surgical standpoint Objective - Vital Signs Vital signs: Vital Signs Temp 98.1 F 04/29/23 09:27 Pulse 91 04/29/23 09:27 Resp 18 04/29/23 09:27 BP 144/81 04/29/23 09:27 Pulse Ox 96 04/29/23 09:27 FiO2 Intake & Output 04/28/23 04/29/23 04/29/23 18:59 06:59 18:59 Intake Total 625 Output Total 700 2600 Balance -700 -2600 625 Intake: Oral 625 Output: Urine 700 2600 Other: Voiding Method Indwelling Catheter Indwelling Catheter # Voids 1 - Labs CBC & Chem 7: 04/29/23 05:53 04/29/23 05:53 Labs: Abnormal Lab Results - Last 24 Hours (Table) 04/29/23 Range/Units 05:53 Hct 37.0 L (37.2-46.3) % RDW 15.9 H (11.5-14.5) % MPV 9.4 L (9.5-12.2) [place] Microbiology - Last 24 Hours (Table) 04/27/23 16:05 Blood Culture - Preliminary Blood 04/27/23 15:50 Blood Culture - Preliminary Blood 04/27/23 12:41 Urine Culture - Final Urine,Catheterized
[2023-04-29 14:47] VITALS: BP 138/71; PULSE 80; RESP 20; TEMP 98.2
[2023-04-29] MEDS ORDERED: polyethylene glycoL 3350 17 GM POWD.PACK PO STA (14:48)
--- NOTE | 2023-04-29 14:49 | P.DS ---
Providers Date of admission: 04/27/23 15:19 Expected date of discharge: 04/29/23 Attending physician: Matthew Myers Consults: 04/27/23 15:26 Consult Physician Routine Consulting Provider: Christie Frost Consult Reason/Comments: abd pain Do you want consulting provider notified?: Yes 04/27/23 17:19 Consult Physician Routine Consulting Provider: Owen Franco Consult Reason/Comments: abd pain Do you want consulting provider notified?: Already Contacted Primary care physician: Matthew Myers Hospital Course: Final Diagnoses: Abdominal pain Nonobstructing right renal calculi reported per CT Possible acute UTI in a patient with history of recurrent UTIs, urine culture negative. Possible constipation, patient with history of constipation Urinary retention status post Fernandez catheter insertion, PVRs pending Cholelithiasis, asymptomatic, HIDA scan reported normal, no surgical intervention recommended Degenerative disc disease L5 to S1 Atelectasis Dementia Hypertension Hyperlipidemia Hospital course this a 83-year-old pleasant female with dementia admitted with abdominal pain, maintained on ceftriaxone for potential acute UTI, urine culture negative. Evaluated by general surgery. CT reported cholelithiasis. HIDA scan reported negative, no surgical recommendations at this time. Ultrasound of kidneys reported no evidence of obstructive uropathy, nonobstructive right renal calculi .Currently eating a hamburger and urdu fries at lunch.Denies nausea, vomiting or diarrhea. Denies abdominal pain. Afebrile, normal WBC.Cleared by general surgery for discharge. Flomax added to med regimen.Fernandez catheter recently discontinued, spontaneous voiding with PVRs pending. Patient will be discharged home today in a stable condition with guarded prognosis. The impression and plan of care has been dictated as directed. : I performed a history and examination of this patient, discussed the same with the dictator. I agree with the dictator's note ,documented as a scribe. Any additional findings or plans will be noted. Patient Condition at Discharge: Stable Plan - Discharge Summary Discharge Rx Participant: No New Discharge Prescriptions: New amLODIPine [Norvasc] 10 mg PO DAILY #30 tab Tamsulosin [Flomax] 0.4 mg PO PC-BRKFST #30 cap Continue Simvastatin [Zocor] 20 mg PO HS Losartan Potassium 100 mg PO DAILY Calcium Carbonate/Vitamin D3 [Caltrate 600 Plus D3 20 Mcg (800 Iu)] 1 tab PO DAILY Loratadine [Claritin] 10 mg PO DAILY Aspirin EC [Ecotrin Low Dose] 81 mg PO DAILY Donepezil HCl [Aricept] 10 mg PO HS hydroCHLOROthiazide 12.5 mg PO DAILY Levothyroxine Sodium [Synthroid] 100 mcg PO DAILY Multivitamins, Thera [Multivitamin (formulary)] 1 tab PO DAILY Vit C/E/Zn/Coppr/Lutein/Zeaxan [Preservision Areds 2 Softgel] 2 cap PO DAILY Discharge Medication List Calcium Carbonate/Vitamin D3 [Caltrate 600 Plus D3 20 Mcg (800 Iu)] 1 tab PO DAILY 03/07/16 [History] Loratadine [Claritin] 10 mg PO DAILY 03/07/16 [History] Losartan Potassium 100 mg PO DAILY 03/07/16 [History] Simvastatin [Zocor] 20 mg PO HS 03/07/16 [History] Aspirin EC [Ecotrin Low Dose] 81 mg PO DAILY 04/27/23 [History] Donepezil HCl [Aricept] 10 mg PO HS 04/27/23 [History] Levothyroxine Sodium [Synthroid] 100 mcg PO DAILY 04/27/23 [History] Multivitamins, Thera [Multivitamin (formulary)] 1 tab PO DAILY 04/27/23 [History] Vit C/E/Zn/Coppr/Lutein/Zeaxan [Preservision Areds 2 Softgel] 2 cap PO DAILY 04/27/23 [History] hydroCHLOROthiazide 12.5 mg PO DAILY 04/27/23 [History] Tamsulosin [Flomax] 0.4 mg PO PC-BRKFST #30 cap 04/29/23 [Rx] amLODIPine [Norvasc] 10 mg PO DAILY #30 tab 04/29/23 [Rx] Follow up Appointment(s)/Referral(s): Matthew Myers DO [Primary Care Provider] - 1-2 days (office busy at time of discharge Please call to schedule appointment ) Ladarius Jones MD [STAFF PHYSICIAN] - 1 Week (Urinary retention, nonobstructive right renal stone)
== END 2023-04-29 17:59 | disposition home or self-care (01) ==
LOC: EC 11:38 → 4SSUR 15:19 → UNDOADMOB 15:19 → OBSVTOIN 15:47 → INTOOBSV 15:47 → 4SSUR 16:52 → UNDODISIN 04-29 17:59
PROVIDERS: ADMIT Family Medicine; ATTEND Family Medicine
DX: R10.9 Unspecified abdominal pain (principal); N20.0 Calculus of kidney; Z87.440 Personal history of urinary (tract) infections; R33.9 Retention of urine, unspecified; K80.20 Calculus of gallbladder without cholecystitis without obstruction; M51.36 Other intervertebral disc degeneration, lumbar region; J98.11 Atelectasis; E07.9 Disorder of thyroid, unspecified; F03.90 Unspecified dementia, unspecified severity, without behavioral disturbance, psychotic disturbance, mood disturbance, and anxiety; I10 Essential (primary) hypertension; E78.5 Hyperlipidemia, unspecified; R41.3 Other amnesia; Z79.899 Other long term (current) drug therapy; Z79.890 Hormone replacement therapy; Z91.02 Food additives allergy status; Z90.710 Acquired absence of both cervix and uterus; Z82.49 Family history of ischemic heart disease and other diseases of the circulatory system
CPT/HCPCS: 96376; 96361 ×3; 96366 ×2; 96372 ×3; 96365; 96375; 99285; 51702; 36415; 80053 ×2; 80048; 82150; 83690; 85025 ×3; 81001; 87040; 87086; 93971; 76770; 74177; 78226; G0378 ×3; A9537; J1644 ×3; J2930; J0696 ×3; C9113; Q9967

== ENCOUNTER 2023-10-28 08:31 | Observation (INO) | payer MEDICARE ==
--- NOTE | 2023-10-28 09:14 | ED ---
Weakness HPI - General Chief complaint: Weakness Stated complaint: Weakness Time Seen by Provider: 10/28/23 08:38 Source: patient, EMS, RN notes reviewed, old records reviewed Mode of arrival: EMS Limitations: no limitations - History of Present Illness Initial comments: This is a 83-year-old female to ER for evaluation of weakness. Patient is a poor historian secondary to severe dementia concern for urinary tract infection and not drinking appropriate amounts of water. MD Complaint: generalized weakness, lack of energy, difficulty walking -: days(s) Location: generalized Severity: moderate Severity scale (1-10): 5 Consistency: constant Improves with: none Worsens with: none Context: recent illness, history of similar Associated Symptoms: confusion, loss of appetite - Related Data Home Medications Medication Instructions Recorded Confirmed Loratadine [Claritin] 10 mg PO DAILY 03/07/16 10/28/23 Losartan Potassium 100 mg PO DAILY 03/07/16 10/28/23 Simvastatin [Zocor] 20 mg PO HS 03/07/16 10/28/23 Aspirin EC [Ecotrin Low Dose] 81 mg PO DAILY 04/27/23 10/28/23 Donepezil HCl [Aricept] 10 mg PO HS 04/27/23 10/28/23 Levothyroxine Sodium [Synthroid] 100 mcg PO DAILY 04/27/23 10/28/23 Vit C/E/Zn/Coppr/Lutein/Zeaxan 1 cap PO DAILY 04/27/23 10/28/23 [Preservision Areds 2 Softgel] hydroCHLOROthiazide 12.5 mg PO DAILY 04/27/23 10/28/23 Ascorbic Acid [Vitamin C] 500 mg PO DAILY 10/28/23 10/28/23 Brexpiprazole [Rexulti] 1 mg PO DAILY 10/28/23 10/28/23 Calcium/Magnesium/Vitamin D3/K2 0.5 tab PO DAILY 10/28/23 10/28/23 266mg/133mg/8.3mcg/30mcg Methenamine Hippurate [Hiprex] 1 gm PO DAILY 10/28/23 10/28/23 Multivit with Calcium,Iron,Min 1 tab PO DAILY 10/28/23 10/28/23 [Women's Multivitamin] Tamsulosin [Flomax] 0.4 mg PO DAILY 10/28/23 10/28/23 Previous Rx's Medication Instructions Recorded Cefuroxime [Ceftin] 250 mg PO BID 3 Days #6 tab 10/30/23 Allergies Allergy/AdvReac Type Severity Reaction Status Date / Time corn AdvReac migraines Verified 10/28/23 15:51 Sulfa (Sulfonamide AdvReac Rash/Hives Verified 10/28/23 15:51 Antibiotics) Review of Systems ROS Statement: Those systems with pertinent positive or pertinent negative responses have been documented in the HPI. ROS Other: All systems not noted in ROS Statement are negative. Past Medical History Past Medical History: Dementia, Hyperlipidemia, Hypertension, Thyroid Disorder History of Any Multi-Drug Resistant Organisms: None Reported Past Surgical History: Hysterectomy, Tonsillectomy Additional Past Surgical History / Comment(s): marc cataracts Past Anesthesia/Blood Transfusion Reactions: No Reported Reaction Past Psychological History: No Psychological Hx Reported Smoking Status: Never smoker Past Alcohol Use History: None Reported Past Drug Use History: None Reported - Past Family History Mother Family Medical History: No Reported History Father Family Medical History: Myocardial Infarction (ID) Additional Family Medical History / Comment(s): heart problems Brother(s) Family Medical History: Coronary Artery Disease (CAD) Additional Family Medical History / Comment(s): heart stents General Exam General appearance: alert, in no apparent distress, anxious Head exam: Present: atraumatic, normocephalic, normal inspection Eye exam: Present: normal appearance, PERRL, EOMI. Absent: scleral icterus, conjunctival injection, periorbital swelling ENT exam: Present: normal exam, mucous membranes moist Neck exam: Present: normal inspection. Absent: tenderness, meningismus, lymphadenopathy Respiratory exam: Present: normal lung sounds bilaterally. Absent: respiratory distress, wheezes, rales, rhonchi, stridor Cardiovascular Exam: Present: regular rate, normal rhythm, normal heart sounds. Absent: systolic murmur, diastolic murmur, rubs, gallop, clicks GI/Abdominal exam: Present: soft, normal bowel sounds. Absent: distended, tenderness, guarding, rebound, rigid Extremities exam: Present: normal inspection, full ROM, normal capillary refill. Absent: tenderness, pedal edema, joint swelling, calf tenderness Back exam: Present: normal inspection Neurological exam: Present: alert, oriented X3, CN II-XII intact Psychiatric exam: Present: normal affect, normal mood Skin exam: Present: warm, dry, intact, normal color. Absent: rash Course Vital Signs 10/28/23 10/28/23 10/28/23 08:39 20:00 20:22 Temperature 97.5 F L 98.4 F 98.6 F Pulse Rate 80 86 Respiratory 16 20 Rate Blood Pressure 138/85 130/78 O2 Sat by Pulse 96 95 Oximetry - Reevaluation(s) Reevaluation #1: 10/28/23 09:27 Medical records reviewed Reevaluation #2: 10/28/23 09:27 Patient has relatively no change in symptoms Reevaluation #3: 10/28/23 12:49 Patient informed of results questions answered Reevaluation #4: Was pt. sent in by a medical professional or institution (LEWIS Carlton, INSURANCE PREMIUM AUDITOR, urgent care, hospital, or long term...) When possible be specific @ -no Did you speak to anyone other than the patient for history (EMS, parent, family, police, friend...)? What history was obtained from this source @ -no Did you review nursing and triage notes (agree or disagree)? Why? @ -agree Are old charts reviewed (outside hosp., previous admission, EMS record, old EKG, old radiological studies, urgent care reports/EKG's, long term records)? Report findings @ -yes Differential Diagnosis (chest pain, altered mental status, abdominal pain women, abdominal pain men, vaginal bleeding, weakness, fever, dyspnea, syncope, headache, dizziness, GI bleed, back pain, seizure, CVA, palpatations, mental health, musculoskeletal)? @ -prior EKG interpreted by me (3pts min.). @ -yes X-rays interpreted by me (1pt min.). @ -no CT interpreted by me (1pt min.). @ -no U/S interpreted by me (1pt. min.). @ -no What testing was considered but not performed or refused? (CT, X-rays, U/S, labs)? Why? @ -none What meds were considered but not given or refused? Why? @ -none Did you discuss the management of the patient with other professionals (professionals i.e. LEWIS Carlton, INSURANCE PREMIUM AUDITOR, lab, RT, psych nurse, clinical social work therapist, database marketing analyst, teacher, intelligence officer basic, correctional counselor/case manager)? Give summary @ -no Was smoking cessation discussed for >3mins.? @ -no Were there social determinants of health that impacted care today? How? (Homelessness, low income, unemployed, alcoholism, drug addiction, tr ansportation, low edu. Level, literacy, decrease access to med. care, [facility], rehab)? @ -none Was there de-escalation of care discussed even if they declined (Discuss DNR or withdrawal of care, Hospice)? DNR status @ -no What co-morbidities impacted this encounter? (DM, HTN, Smoking, COPD, CAD, Canc er, CVA, ARF, Chemo, Hep., AIDS, mental health diagnosis, sleep apnea, morbid obesity)? @ -none Was patient admitted / discharged? Hospital course, mention meds given and route, prescriptions, significant lab abnormalities, going to OR and other pertinent info. @ - 83 female of dementia coming in for evaluation of possible urinary tract infection found to have urinary tract infection placed on antibiotics patient has significant worsening symptoms here in the ER and will be admitted for IV antibiotics Admitted Was critical care preformed (if so, how long)? @ -no Undiagnosed new problem with uncertain prognosis? @ -no Drug Therapy requiring intensive monitoring for toxicity (Heparin, Nitro, Insulin, Cardizem)? @ -no Were any procedures done? @ -no Diagnosis/symptom? @ -Dementia, UTI Acute, or Chronic, or Acute on Chronic? @ -Acute Uncomplicated (without systemic symptoms) or Complicated (systemic symptoms)? @ -Complicated Side effects of treatment? @ -no Exacerbation, Progression, or Severe Exacerbation? @ -exacerbation Poses a threat to life or bodily function? How? (Chest pain, USA, ID, pneumonia, PE, COPD, DKA, ARF, appy, cholecystitis, CVA, Diverticulitis, Homicidal, Suicidal, threat to staff... and all critical care pts) @ -yes with extremes of age Reevaluation #5: Differential Weakness: Hypoglycemia, shock, sepsis, hyponatremia, anemia, infection, ID, ETOH, adverse medicine reaction, overdose, stroke, this is not meant to be an all-inclusive list. EKG Findings - EKG Comments: EKG Findings:: EKG shows sinus 81 MS 155 QRS 125 QTc 425 - EKG Results: EKG: interpreted by ERMD Medical Decision Making - Medical Decision Making 83 female of dementia coming in for evaluation of possible urinary tract infection found to have urinary tract infection placed on antibiotics patient has significant worsening symptoms here in the ER and will be admitted for IV antibiotics - Lab Data Result diagrams: 10/30/23 07:52 10/30/23 07:52 Lab Results 10/28/23 10/28/23 10/28/23 Range/Units 09:21 09:21 09:21 WBC 13.6 H (3.8-10.6) k/uL RBC 4.54 (3.80-5.40) m/uL Hgb 13.8 (11.4-16.0) gm/dL Hct 41.4 (34.0-46.0) % MCV 91.2 (80.0-100.0) fL MCH 30.4 (25.0-35.0) pg MCHC 33.3 (31.0-37.0) g/dL RDW 14.3 (11.5-15.5) % Plt Count 293 (150-450) k/uL MPV 7.2 Immature Gran % (Auto) % Absolute Nucleated RBC % Neutrophils % 80 % Lymphocytes % 11 % Monocytes % 6 % Eosinophils % 1 % Basophils % 0 % Immature Gran # (0.00-0.04) X 10*3/uL Neutrophils # 10.9 H (1.3-7.7) k/uL Lymphocytes # 1.4 (1.0-4.8) k/uL Monocytes # 0.8 (0-1.0) k/uL Eosinophils # 0.1 (0-0.7) k/uL Basophils # 0.1 (0-0.2) k/uL NRBC/100 WBC Diff (0.00-0.01) X 10*3/uL PT 10.5 (10.0-12.5) sec INR 0.9 (<1.2) APTT 21.2 L (22.0-30.0) sec Sodium (137-145) mmol/L Potassium (3.5-5.1) mmol/L Chloride (98-107) mmol/L Carbon Dioxide (22-30) mmol/L Anion Gap mmol/L BUN (7-17) mg/dL Creatinine (0.52-1.04) mg/dL Est GFR (CKD-EPI) (>=60) Est GFR (CKD-EPI)AfAm (>60 ml/min/1.73 sqM) Est GFR (CKD-EPI)NonAf (>60 ml/min/1.73 sqM) BUN/Creatinine Ratio (12.00-20.00) Ratio Glucose (74-99) mg/dL Plasma Lactic Acid Carl (0.7-2.0) mmol/L Calcium (8.4-10.2) mg/dL Phosphorus (2.5-4.5) mg/dL Magnesium (1.6-2.3) mg/dL Total Bilirubin (0.2-1.3) mg/dL AST (14-36) U/L ALT (4-34) U/L Alkaline Phosphatase (38-126) U/L Troponin I (0.000-0.034) ng/mL NT-Pro-B Natriuret Pep pg/mL Total Protein (6.3-8.2) g/dL Albumin (3.5-5.0) g/dL Globulin g/dL Albumin/Globulin Ratio Urine Color Light Yellow Urine Appearance Turbid H (Clear) Urine pH 7.0 (5.0-8.0) Ur Specific [place] 1.017 (1.001-1.035) Urine Protein 1+ H (Negative) Urine Glucose (UA) Negative (Negative) Urine Ketones Negative (Negative) Urine Blood Moderate H (Negative) Urine Nitrite Negative (Negative) Urine Bilirubin Negative (Negative) Urine Urobilinogen <2.0 (<2.0) mg/dL Ur Leukocyte Esterase Large H (Negative) Urine RBC 25 H (0-5) /hpf Urine WBC >182 H (0-5) /hpf Urine WBC Clumps Many H (None) /hpf Urine Bacteria Occasional H (None) /hpf Urine Mucus Rare H (None) /hpf 10/28/23 10/28/23 10/28/23 Range/Units 09:21 09:21 09:21 WBC (3.8-10.6) k/uL RBC (3.80-5.40) m/uL Hgb (11.4-16.0) gm/dL Hct (34.0-46.0) % MCV (80.0-100.0) fL MCH (25.0-35.0) pg MCHC (31.0-37.0) g/dL RDW (11.5-15.5) % Plt Count (150-450) k/uL MPV Immature Gran % (Auto) % Absolute Nucleated RBC % Neutrophils % % Lymphocytes % % Monocytes % % Eosinophils % % Basophils % % Immature Gran # (0.00-0.04) X 10*3/uL Neutrophils # (1.3-7.7) k/uL Lymphocytes # (1.0-4.8) k/uL Monocytes # (0-1.0) k/uL Eosinophils # (0-0.7) k/uL Basophils # (0-0.2) k/uL NRBC/100 WBC Diff (0.00-0.01) X 10*3/uL PT (10.0-12.5) sec INR (<1.2) APTT (22.0-30.0) sec Sodium 134 L (137-145) mmol/L Potassium 4.3 (3.5-5.1) mmol/L Chloride 104 (98-107) mmol/L Carbon Dioxide 25 (22-30) mmol/L Anion Gap 5 mmol/L BUN 20 H (7-17) mg/dL Creatinine 0.79 (0.52-1.04) mg/dL Est GFR (CKD-EPI) (>=60) Est GFR (CKD-EPI)AfAm 81 (>60 ml/min/1.73 sqM) Est GFR (CKD-EPI)NonAf 71 (>60 ml/min/1.73 sqM) BUN/Creatinine Ratio (12.00-20.00) Ratio Glucose 106 H (74-99) mg/dL Plasma Lactic Acid Carl 0.8 (0.7-2.0) mmol/L Calcium 9.0 (8.4-10.2) mg/dL Phosphorus 4.1 (2.5-4.5) mg/dL Magnesium 2.0 (1.6-2.3) mg/dL Total Bilirubin 1.2 (0.2-1.3) mg/dL AST 24 (14-36) U/L ALT 20 (4-34) U/L Alkaline Phosphatase 84 (38-126) U/L Troponin I <0.012 (0.000-0.034) ng/mL NT-Pro-B Natriuret Pep 122 pg/mL Total Protein 6.7 (6.3-8.2) g/dL Albumin 3.8 (3.5-5.0) g/dL Globulin g/dL Albumin/Globulin Ratio Urine Color Urine Appearance (Clear) Urine pH (5.0-8.0) Ur Specific [place] (1.001-1.035) Urine Protein (Negative) Urine Glucose (UA) (Negative) Urine Ketones (Negative) Urine Blood (Negative) Urine Nitrite (Negative) Urine Bilirubin (Negative) Urine Urobilinogen (<2.0) mg/dL Ur Leukocyte Esterase (Negative) Urine RBC (0-5) /hpf Urine WBC (0-5) /hpf Urine WBC Clumps (None) /hpf Urine Bacteria (None) /hpf Urine Mucus (None) /hpf 10/29/23 10/29/23 10/30/23 Range/Units 08:23 08:23 07:52 WBC 13.3 H 10.76 H (3.8-10.6) k/uL RBC 4.33 4.11 (3.80-5.40) m/uL Hgb 12.9 12.7 (11.4-16.0) gm/dL Hct 40.6 37.4 (34.0-46.0) % MCV 93.8 91.0 (80.0-100.0) fL MCH 29.8 30.9 (25.0-35.0) pg MCHC 31.8 34.0 (31.0-37.0) g/dL RDW 14.0 14.5 (11.5-15.5) % Plt Count 272 286 (150-450) k/uL MPV 8.0 9.7 Immature Gran % (Auto) 0.90 % Absolute Nucleated RBC 0 % Neutrophils % 73 69.8 % Lymphocytes % 17 16.4 % Monocytes % 8 11.1 % Eosinophils % 1 1.1 % Basophils % 1 0.7 % Immature Gran # 0.10 H (0.00-0.04) X 10*3/uL Neutrophils # 9.7 H 7.52 (1.3-7.7) k/uL Lymphocytes # 2.2 1.76 (1.0-4.8) k/uL Monocytes # 1.0 1.19 H (0-1.0) k/uL Eosinophils # 0.1 0.12 (0-0.7) k/uL Basophils # 0.1 0.07 (0-0.2) k/uL NRBC/100 WBC Diff 0 (0.00-0.01) X 10*3/uL PT (10.0-12.5) sec INR (<1.2) APTT (22.0-30.0) sec Sodium 133 L (137-145) mmol/L Potassium 3.9 (3.5-5.1) mmol/L Chloride 105 (98-107) mmol/L Carbon Dioxide 20 L (22-30) mmol/L Anion Gap 8 mmol/L BUN 13 (7-17) mg/dL Creatinine 0.73 (0.52-1.04) mg/dL Est GFR (CKD-EPI) (>=60) Est GFR (CKD-EPI)AfAm 89 (>60 ml/min/1.73 sqM) Est GFR (CKD-EPI)NonAf 77 (>60 ml/min/1.73 sqM) BUN/Creatinine Ratio (12.00-20.00) Ratio Glucose 99 (74-99) mg/dL Plasma Lactic Acid Carl (0.7-2.0) mmol/L Calcium 9.0 (8.4-10.2) mg/dL Phosphorus 3.6 (2.5-4.5) mg/dL Magnesium 1.9 (1.6-2.3) mg/dL Total Bilirubin 1.1 (0.2-1.3) mg/dL AST 26 (14-36) U/L ALT 19 (4-34) U/L Alkaline Phosphatase 80 (38-126) U/L Troponin I (0.000-0.034) ng/mL NT-Pro-B Natriuret Pep pg/mL Total Protein 6.4 (6.3-8.2) g/dL Albumin 3.5 (3.5-5.0) g/dL Globulin 2.9 g/dL Albumin/Globulin Ratio 1.2 Urine Color Urine Appearance (Clear) Urine pH (5.0-8.0) Ur Specific [place] (1.001-1.035) Urine Protein (Negative) Urine Glucose (UA) (Negative) Urine Ketones (Negative) Urine Blood (Negative) Urine Nitrite (Negative) Urine Bilirubin (Negative) Urine Urobilinogen (<2.0) mg/dL Ur Leukocyte Esterase (Negative) Urine RBC (0-5) /hpf Urine WBC (0-5) /hpf Urine WBC Clumps (None) /hpf Urine Bacteria (None) /hpf Urine Mucus (None) /hpf 10/30/23 Range/Units 07:52 WBC (3.8-10.6) k/uL RBC (3.80-5.40) m/uL Hgb (11.4-16.0) gm/dL Hct (34.0-46.0) % MCV (80.0-100.0) fL MCH (25.0-35.0) pg MCHC (31.0-37.0) g/dL RDW (11.5-15.5) % Plt Count (150-450) k/uL MPV Immature Gran % (Auto) % Absolute Nucleated RBC % Neutrophils % % Lymphocytes % % Monocytes % % Eosinophils % % Basophils % % Immature Gran # (0.00-0.04) X 10*3/uL Neutrophils # (1.3-7.7) k/uL Lymphocytes # (1.0-4.8) k/uL Monocytes # (0-1.0) k/uL Eosinophils # (0-0.7) k/uL Basophils # (0-0.2) k/uL NRBC/100 WBC Diff (0.00-0.01) X 10*3/uL PT (10.0-12.5) sec INR (<1.2) APTT (22.0-30.0) sec Sodium 135 (137-145) mmol/L Potassium 3.9 (3.5-5.1) mmol/L Chloride 102 (98-107) mmol/L Carbon Dioxide 22.7 (22-30) mmol/L Anion Gap 10.30 mmol/L BUN 7.3 L (7-17) mg/dL Creatinine 0.8 (0.52-1.04) mg/dL Est GFR (CKD-EPI) 74 (>=60) Est GFR (CKD-EPI)AfAm (>60 ml/min/1.73 sqM) Est GFR (CKD-EPI)NonAf (>60 ml/min/1.73 sqM) BUN/Creatinine Ratio 9.12 L (12.00-20.00) Ratio Glucose 115 H (74-99) mg/dL Plasma Lactic Acid Carl (0.7-2.0) mmol/L Calcium 8.8 (8.4-10.2) mg/dL Phosphorus (2.5-4.5) mg/dL Magnesium (1.6-2.3) mg/dL Total Bilirubin (0.2-1.3) mg/dL AST (14-36) U/L ALT (4-34) U/L Alkaline Phosphatase (38-126) U/L Troponin I (0.000-0.034) ng/mL NT-Pro-B Natriuret Pep pg/mL Total Protein (6.3-8.2) g/dL Albumin (3.5-5.0) g/dL Globulin g/dL Albumin/Globulin Ratio Urine Color Urine Appearance (Clear) Urine pH (5.0-8.0) Ur Specific [place] (1.001-1.035) Urine Protein (Negative) Urine Glucose (UA) (Negative) Urine Ketones (Negative) Urine Blood (Negative) Urine Nitrite (Negative) Urine Bilirubin (Negative) Urine Urobilinogen (<2.0) mg/dL Ur Leukocyte Esterase (Negative) Urine RBC (0-5) /hpf Urine WBC (0-5) /hpf Urine WBC Clumps (None) /hpf Urine Bacteria (None) /hpf Urine Mucus (None) /hpf - EKG Data -: EKG Interpreted by Me Disposition Clinical Impression: Urinary tract infection, Dehydration, Altered mental state, Weakness Disposition: ADMITTED IP TO THIS HOSP Condition: Stable Is patient prescribed a controlled substance at d/c from ED?: No Time of Disposition: 12:40
[2023-10-28 09:44] LABS: Basophils # (A) 0.1 k/uL (0-0.2); Basophils % (A) 0 %; Eosinophils # (A) 0.1 k/uL (0-0.7); Eosinophils % (A) 1 %; HCT 41.4 % (34.0-46.0); HGB 13.8 gm/dL (11.4-16.0); Lymphocytes # (A) 1.4 k/uL (1.0-4.8); Lymphocytes % (A) 11 %; MCH 30.4 pg (25.0-35.0); MCHC 33.3 g/dL (31.0-37.0); MCV 91.2 fL (80.0-100.0); Mean Platelet Volume 7.2; Monocytes # (A) 0.8 k/uL (0-1.0); Monocytes % (A) 6 %; Neutrophils # (A) 10.9 k/uL (1.3-7.7); Neutrophils % (A) 80 %; Platelet Count 293 k/uL (150-450); RBC 4.54 m/uL (3.80-5.40); RDW 14.3 % (11.5-15.5); WBC 13.6 k/uL (3.8-10.6)
[2023-10-28 09:55] LABS: ALT 20 U/L (4-34); AST 24 U/L (14-36); African American GFR (CKD) 81 (>60 ml/min/1.73 sqM); Albumin 3.8 g/dL (3.5-5.0); Alkaline Phosphatase 84 U/L (38-126); Anion Gap 5 mmol/L; Blood Urea Nitrogen 20 mg/dL (7-17); Carbon Dioxide 25 mmol/L (22-30); Chloride 104 mmol/L (98-107); Glucose 106 mg/dL (74-99); Non-African American GFR(CKD) 71 (>60 ml/min/1.73 sqM); Phosphorus 4.1 mg/dL (2.5-4.5); Potassium 4.3 mmol/L (3.5-5.1); Sodium 134 mmol/L (137-145); Total Bilirubin 1.2 mg/dL (0.2-1.3); Total Protein 6.7 g/dL (6.3-8.2)
[2023-10-28] MEDS: SODIUM CHLORIDE 0.9% 1,000 ML IV STA (09:57)
[2023-10-28 10:02] LABS: INR 0.9 (<1.2); Prothrombin Time 10.5 sec (10.0-12.5)
[2023-10-28 10:03] LABS: NT-Pro-B-Type Natriuretic Pept 122 pg/mL
[2023-10-28 10:14] LABS: Partial Thromboplastin Time 21.2 sec (22.0-30.0)
[2023-10-28 12:16] LABS: Appearance,Urine Turbid (Clear); Bacteria,Urine Occasional /hpf; Bilirubin,Urine Negative (Negative); Blood,Urine Moderate (Negative); Color,Urine Light Yellow; Glucose,Urine (UA) Negative (Negative); Ketones,Urine Negative (Negative); Leukocyte Esterase,Urine Large (Negative); Mucus,Urine Rare /hpf; Nitrite,Urine Negative (Negative); Protein,Urine 1+ (Negative); RBC,Urine 25 /hpf (0-5); Specific Gravity,Urine 1.017 (1.001-1.035); Urobilinogen,Urine <2.0 mg/dL (<2.0); WBC,Urine >182 /hpf (0-5)
[2023-10-28] MEDS ORDERED: LORazepam 0.5 MG TAB PO PRN (14:36)
[2023-10-28] MEDS ORDERED: NALOXONE 0.4 MG/ML 1 ML VIAL IV PRN (14:36)
[2023-10-28] MEDS: LEVOFLOXACIN 750MG-D5W PMX 750 MG in DEXTROSE/WATER 1 150ML.BAG IVPB STA (15:36)
[2023-10-28] MEDS: LEVOFLOXACIN 750MG-D5W PMX 750 MG in DEXTROSE/WATER 1 150ML.BAG IVPB SCH (19:32)
[2023-10-28] MEDS: LEVOFLOXACIN 750 MG TAB PO STA (19:32)
[2023-10-28] MEDS: cefTRIAXone IN SWFI 1,000 MG/10 ML SYRINGE IVP STA (19:32)
[2023-10-28] MEDS: SODIUM CHLORIDE 0.9% 1,000 ML IV SCH (19:35)
[2023-10-29] MEDS: PANTOPRAZOLE 40 MG/10 ML VIAL IV SCH (08:45)
[2023-10-29] MEDS: MULTIVITAMINS, THERA 1 EACH TAB PO SCH (08:51)
[2023-10-29] MEDS: LORATADINE 10 MG TAB PO SCH (08:51)
[2023-10-29] MEDS: LOSARTAN 50 MG TAB PO SCH (08:51)
[2023-10-29] MEDS: TAMSULOSIN 0.4 MG CAP.ER.24H PO SCH (08:51)
[2023-10-29] MEDS ORDERED: CALCIUM PO SCH (09:00)
[2023-10-29] MEDS ORDERED: VITAMIN D3 PO SCH (09:00)
[2023-10-29] MEDS ORDERED: MAGNESIUM PO SCH (09:00)
[2023-10-29] MEDS ORDERED: K2 PO SCH (09:00)
[2023-10-29 09:17] LABS: Basophils # (A) 0.1 k/uL (0-0.2); Basophils % (A) 1 %; Eosinophils # (A) 0.1 k/uL (0-0.7); Eosinophils % (A) 1 %; HCT 40.6 % (34.0-46.0); HGB 12.9 gm/dL (11.4-16.0); Lymphocytes # (A) 2.2 k/uL (1.0-4.8); Lymphocytes % (A) 17 %; MCH 29.8 pg (25.0-35.0); MCHC 31.8 g/dL (31.0-37.0); MCV 93.8 fL (80.0-100.0); Monocytes % (A) 8 %; Neutrophils # (A) 9.7 k/uL (1.3-7.7); Neutrophils % (A) 73 %; Platelet Count 272 k/uL (150-450); RBC 4.33 m/uL (3.80-5.40); WBC 13.3 k/uL (3.8-10.6)
[2023-10-29 09:28] LABS: ALT 19 U/L (4-34); AST 26 U/L (14-36); African American GFR (CKD) 89 (>60 ml/min/1.73 sqM); Albumin 3.5 g/dL (3.5-5.0); Albumin/Globulin Ratio 1.2; Alkaline Phosphatase 80 U/L (38-126); Anion Gap 8 mmol/L; Blood Urea Nitrogen 13 mg/dL (7-17); Carbon Dioxide 20 mmol/L (22-30); Chloride 105 mmol/L (98-107); Globulin 2.9 g/dL; Glucose 99 mg/dL (74-99); Magnesium 1.9 mg/dL (1.6-2.3); Non-African American GFR(CKD) 77 (>60 ml/min/1.73 sqM); Phosphorus 3.6 mg/dL (2.5-4.5); Potassium 3.9 mmol/L (3.5-5.1); Sodium 133 mmol/L (137-145); Total Bilirubin 1.1 mg/dL (0.2-1.3); Total Protein 6.4 g/dL (6.3-8.2)
[2023-10-29 12:19] VITALS: BMI 18.0
[2023-10-29] MEDS: LEVOFLOXACIN 500MG-D5W PMX 500 MG in DEXTROSE/WATER 1 100ML.BAG IVPB SCH (12:27)
--- NOTE | 2023-10-29 17:01 | P.HPIM ---
History of Present Illness H&P Date: 10/29/23 Chief Complaint: Altered mental status, increased weakness, UTI suspect This is a pleasant 83-year-old female with past medical history significant for recurrent UTIs ,dementia, hypertension, hyperlipidemia, degenerative disc disease, nonobstructing renal calculi and multiple other medical issues presented to the ER with complaints of altered mental status, increased confus ion, increased weakness-not getting out of bed and suspected UTI. Afebrile, WBC 13.3, renal function stable. UA reported many WBC clumps, greater than 182 WBCs, large leukocytes, negative nitrates. EKG reported sinus rhythm, sinus arrhythmia, right bundle branch block, troponin negative times one. Currently nonverbal. Review of Systems ROS Statement: Those systems with pertinent positive or pertinent negative responses have been documented in the HPI. ROS Other: All systems not noted in ROS Statement are negative. (As per daughter at bedside, patient nonverbal at this time) Past Medical History Past Medical History: Dementia, Hyperlipidemia, Hypertension, Thyroid Disorder History of Any Multi-Drug Resistant Organisms: None Reported Past Surgical History: Hysterectomy, Tonsillectomy Additional Past Surgical History / Comment(s): marc cataracts Past Anesthesia/Blood Transfusion Reactions: Postoperative Nausea & Vomiting (PONV) Past Psychological History: No Psychological Hx Reported Smoking Status: Never smoker Past Alcohol Use History: None Reported Past Drug Use History: None Reported - Past Family History Mother Family Medical History: No Reported History Father Family Medical History: Myocardial Infarction (MD) Additional Family Medical History / Comment(s): heart problems- Brother(s) Family Medical History: Coronary Artery Disease (CAD) Additional Family Medical History / Comment(s): heart stents Medications and Allergies Home Medications Medication Instructions Recorded Confirmed Type Loratadine [Claritin] 10 mg PO DAILY 03/07/16 10/28/23 History Losartan Potassium 100 mg PO DAILY 03/07/16 10/28/23 History Simvastatin [Zocor] 20 mg PO HS 03/07/16 10/28/23 History Aspirin EC [Ecotrin Low Dose] 81 mg PO DAILY 04/27/23 10/28/23 History Donepezil HCl [Aricept] 10 mg PO HS 04/27/23 10/28/23 History Levothyroxine Sodium [Synthroid] 100 mcg PO DAILY 04/27/23 10/28/23 History Vit C/E/Zn/Coppr/Lutein/Zeaxan 1 cap PO DAILY 04/27/23 10/28/23 History [Preservision Areds 2 Softgel] hydroCHLOROthiazide 12.5 mg PO DAILY 04/27/23 10/28/23 History Ascorbic Acid [Vitamin C] 500 mg PO DAILY 10/28/23 10/28/23 History Brexpiprazole [Rexulti] 1 mg PO DAILY 10/28/23 10/28/23 History Calcium/Magnesium/Vitamin D3/K2 0.5 tab PO DAILY 10/28/23 10/28/23 History 266mg/133mg/8.3mcg/30mcg Levofloxacin [Levaquin] 750 mg PO DAILY 7 Days #1 tab 10/28/23 Rx Methenamine Hippurate [Hiprex] 1 gm PO DAILY 10/28/23 10/28/23 History Multivit with Calcium,Iron,Min 1 tab PO DAILY 10/28/23 10/28/23 History [Women's Multivitamin] Tamsulosin [Flomax] 0.4 mg PO DAILY 10/28/23 10/28/23 History Allergies Allergy/AdvReac Type Severity Reaction Status Date / Time corn AdvReac migraines Verified 10/28/23 15:51 Sulfa (Sulfonamide AdvReac Rash/Hives Verified 10/28/23 15:51 Antibiotics) Physical Exam Vitals: Vital Signs Temp Pulse Pulse Resp BP BP BP 10/29/23 12:51 99.0 F 88 18 176/80 10/29/23 07:17 98.1 F 71 16 174/79 10/29/23 02:00 98.5 F 82 16 155/81 10/28/23 22:35 98.8 F 81 16 161/78 10/28/23 20:22 98.6 F 10/28/23 20:00 98.4 F 86 20 130/78 Pulse Ox 10/29/23 12:51 96 10/29/23 07:17 96 10/29/23 02:00 93 L 10/28/23 22:35 95 10/28/23 20:22 10/28/23 20:00 95 Intake and Output 10/29/23 10/29/23 10/29/23 06:59 14:59 22:59 Intake Total 600 Balance 600 Intake: Intake, IV Titration 600 Amount Sodium Chloride 0.9% 1, 600 000 ml @ 75 mls/hr IV . [id number] [facility] Rx#:[id number] Other: Voiding Method Toilet Toilet Diaper Diaper Incontinent Incontinent # Voids 1 1 Weight 52.163 kg PHYSICAL EXAM: VITAL SIGNS: [As above] GENERAL: Alert and oriented x 1, sitting up in chair, no acute distress, pleasant, calm. HEENT: Atraumatic, conjunctivae normal. eyes normal. NECK: Supple, no JVD. CARDIOVASCULAR: S1, S2 regular. No murmur RESPIRATION: Unlabored, equal air entry, breath sounds diminished in the bases. ABDOMEN: Soft, nondistended, nontender . No guarding. no masses palpable. +BS. LEGS: No edema. no swelling NERVOUS SYSTEM: Cranial N 2-12 grossly normal. Skin: Warm and dry, no rash noted. Results CBC & Chem 7: 10/29/23 08:23 10/29/23 08:23 Labs: Abnormal Lab Results - Last 24 Hours (Table) 10/29/23 10/29/23 Range/Units 08:23 08:23 WBC 13.3 H (3.8-10.6) k/uL Neutrophils # 9.7 H (1.3-7.7) k/uL Sodium 133 L (137-145) mmol/L Carbon Dioxide 20 L (22-30) mmol/L Thrombosis Risk Factor Assmnt - Choose All That Apply Each Risk Factor Represents 3 Points: Age 75 years or older Other congenital or acquired thrombophilia - If yes, enter type in comment: No Thrombosis Risk Factor Assessment Total Risk Factor Score: 3 Thrombosis Risk Factor Assessment Level: Moderate Risk Assessment and Plan Assessment: Acute UTI in a patient with history of recurrent UTIs Dehydration secondary to the above Hyponatremia secondary to the above Increased confusion, weakness , acute metabolic encephalopathy secondary to the above, in a patient with baseline progressive dementia. Degenerative disc disease L5 to S1 Atelectasis Hypertension Hyperlipidemia Plan: Continue on current medication regimen ,monitoring and symptomatic tr eatment. Maintain gentle IV fluid hydration. IV antibiotics of ceftriaxone resumed. Urine culture in progress. PPI in place for GI prophylaxis. PT consulted. Daughter at bedside, updated on plan of care. Discharge planning in progress for tomorrow. The impression and plan of care has been dictated as directed. : I performed a history and examination of this patient, discussed the same with the dictator. I agree with the dictator's note ,documented as a scribe. Any additional findings or plans will be noted.
--- NOTE | 2023-10-29 17:10 | P.CNNES ---
History of Present Illness Consult date: 10/29/23 Requesting physician: Keny Nye Reason for Consult: cva History of Present Illness: This is an 83-year-old woman with a history of dementia, recurrent urinary tract infection to the emergency department for urinary tract infection and generalized weakness. History is obtained from the patient's and gem shearer who are bedside. According to family members, they suspected the patient has a urinary tract infection since she was lethargic this past Saturday but it seems that it was she was worse in the last 1 to 2 days and was hard to get a urine culture sample on her. She had generalized weakness. She was not responding or following commands. They stated that since the patient's been here and she got IV antibiotics she has been drastically better. The daughter the patient was evaluated by Dr. Rocky Alegria, neurologist and she was notified that the patient had dementia. The patient is oriented to self at baseline. Some of the workup during this hospital visit consisted of: Urinalysis is leukocyte Estrace is large, urine white blood cell is more than 182, urine white blood cell clumps is many. Urine bacteria is occasional. Review of Systems Limited but the positive and negative as per HPI. Past Medical History Past Medical History: Dementia, Hyperlipidemia, Hypertension, Thyroid Disorder History of Any Multi-Drug Resistant Organisms: None Reported Past Surgical History: Hysterectomy, Tonsillectomy Additional Past Surgical History / Comment(s): marc cataracts Past Anesthesia/Blood Transfusion Reactions: Postoperative Nausea & Vomiting (PONV) Past Psychological History: No Psychological Hx Reported Smoking Status: Never smoker Past Alcohol Use History: None Reported Past Drug Use History: None Reported - Past Family History Mother Family Medical History: No Reported History Father Family Medical History: Myocardial Infarction (DC) Additional Family Medical History / Comment(s): heart problems- Brother(s) Family Medical History: Coronary Artery Disease (CAD) Additional Family Medical History / Comment(s): heart stents Medications and Allergies Home Medications Medication Instructions Recorded Confirmed Type Loratadine [Claritin] 10 mg PO DAILY 03/07/16 10/28/23 History Losartan Potassium 100 mg PO DAILY 03/07/16 10/28/23 History Simvastatin [Zocor] 20 mg PO HS 03/07/16 10/28/23 History Aspirin EC [Ecotrin Low Dose] 81 mg PO DAILY 04/27/23 10/28/23 History Donepezil HCl [Aricept] 10 mg PO HS 04/27/23 10/28/23 History Levothyroxine Sodium [Synthroid] 100 mcg PO DAILY 04/27/23 10/28/23 History Vit C/E/Zn/Coppr/Lutein/Zeaxan 1 cap PO DAILY 04/27/23 10/28/23 History [Preservision Areds 2 Softgel] hydroCHLOROthiazide 12.5 mg PO DAILY 04/27/23 10/28/23 History Ascorbic Acid [Vitamin C] 500 mg PO DAILY 10/28/23 10/28/23 History Brexpiprazole [Rexulti] 1 mg PO DAILY 10/28/23 10/28/23 History Calcium/Magnesium/Vitamin D3/K2 0.5 tab PO DAILY 10/28/23 10/28/23 History 266mg/133mg/8.3mcg/30mcg Levofloxacin [Levaquin] 750 mg PO DAILY 7 Days #1 tab 10/28/23 Rx Methenamine Hippurate [Hiprex] 1 gm PO DAILY 10/28/23 10/28/23 History Multivit with Calcium,Iron,Min 1 tab PO DAILY 10/28/23 10/28/23 History [Women's Multivitamin] Tamsulosin [Flomax] 0.4 mg PO DAILY 10/28/23 10/28/23 History Allergies Allergy/AdvReac Type Severity Reaction Status Date / Time corn AdvReac migraines Verified 10/28/23 15:51 Sulfa (Sulfonamide AdvReac Rash/Hives Verified 10/28/23 15:51 Antibiotics) Physical Examination - Vital Signs Vital Signs: Vital Signs Temp Pulse Pulse Resp BP BP BP 10/29/23 12:51 99.0 F 88 18 176/80 10/29/23 07:17 98.1 F 71 16 174/79 10/29/23 02:00 98.5 F 82 16 155/81 10/28/23 22:35 98.8 F 81 16 161/78 10/28/23 20:22 98.6 F 10/28/23 20:00 98.4 F 86 20 130/78 Pulse Ox 10/29/23 12:51 96 10/29/23 07:17 96 06/04/24 02:00 93 L 10/28/23 22:35 95 10/28/23 20:22 10/28/23 20:00 95 Intake and Output 10/29/23 10/29/23 10/29/23 06:59 14:59 22:59 Intake Total 600 Balance 600 Intake: Intake, IV Titration 600 Amount Sodium Chloride 0.9% 1, 600 000 ml @ 75 mls/hr IV . [id number] [facility] Rx#:[id number] Other: Voiding Method Toilet Toilet Diaper Diaper Incontinent Incontinent # Voids 1 1 Weight 52.163 kg General: Lying in bed and does not appear in acute distress. Neuro: The patient is sleeping but is awakeable to voice. Is oriented to self. She is following simple commands. She is able to stick her tongue out and moves her tongue [id number] even without me telling her without any difficulty. She was able to close her eyes, smile lift up her arms and will go without any difficulty. Facial weakness. No dysarthria from limited language appear She is lifting both arms above gravity symmetrically. Results - Laboratory Findings CBC and BMP: 10/29/23 08:23 10/29/23 08:23 Abnormal Lab Findings: Abnormal Labs 10/28/23 10/28/23 10/28/23 09:21 09:21 09:21 WBC 13.6 H Neutrophils # 10.9 H APTT 21.2 L Sodium Carbon Dioxide BUN Glucose Urine Appearance Turbid H Urine Protein 1+ H Urine Blood Moderate H Ur Leukocyte Esterase Large H Urine RBC 25 H Urine WBC >182 H Urine WBC Clumps Many H Urine Bacteria Occasional H Urine Mucus Rare H 10/28/23 10/29/23 10/29/23 09:21 08:23 08:23 WBC 13.3 H Neutrophils # 9.7 H APTT Sodium 134 L 133 L Carbon Dioxide 20 L BUN 20 H Glucose 106 H Urine Appearance Urine Protein Urine Blood Ur Leukocyte Esterase Urine RBC Urine WBC Urine WBC Clumps Urine Bacteria Urine Mucus Assessment and Plan Assessment: This is an 83-year-old woman with history of moderate to severe dementia and is oriented to self only at baseline, current urinary tract infection who presents because of generalized weakness and suspicion for urinary tract infection. Urinalysis is seems suggestive of urinary tract infection and patient received IV antibiotic and per family she is drastically better compared to initial presentation. Altered mental status is due to underlying acute UTI and metabolic encephalopathy---improving Moderate to severe dementia and is oriented to self at baseline Recurrent urinary tract infection Plan: Family members do not want a pursue with any further neurological workup since the patient is improving after IV antibiotic Patient is on her home dose of Aricept 10 mg nightly. Will defer the rest of the medical management the primary team and other specialist Plan discussed with the patient's and daughter were at bedside. Also discussed with the nurse Thank you for the consultation. There is no further neurological workup. Will sign off. Please reconsult if needed. Time with Patient: Greater than 30
[2023-10-29] MEDS: ATORVASTATIN 10 MG TAB PO SCH (20:32)
[2023-10-29] MEDS: DONEPEZIL 10 MG TAB PO SCH (20:32)
[2023-10-29 21:05] VITALS: RESP 16
[2023-10-30] MEDS: LEVOTHYROXINE 100 MCG TAB PO SCH (05:36)
[2023-10-30] MEDS: PANTOPRAZOLE 40 MG TABLET PO SCH (09:54)
[2023-10-30 10:25] LABS: BUN/Creat Ratio 9.12 Ratio (12.00-20.00); Blood Urea Nitrogen 7.3 mg/dL (9.0-27.0); Calcium 8.8 mg/dL (8.7-10.3); Carbon Dioxide 22.7 mmol/L (21.6-31.8); Chloride 102 mmol/L (96-109); Glucose 115 mg/dL (70-110); Potassium 3.9 mmol/L (3.5-5.5); Sodium 135 mmol/L (135-145)
[2023-10-30 10:36] LABS: Basophils # (A) 0.07 X 10*3/uL (0.00-0.10); Basophils % (A) 0.7 %; Eosinophils # (A) 0.12 X 10*3/uL (0.04-0.35); Eosinophils % (A) 1.1 %; HCT 37.4 % (37.2-46.3); HGB 12.7 g/dL (12.0-15.0); Lymphocytes # (A) 1.76 X 10*3/uL (0.90-5.00); Lymphocytes % (A) 16.4 %; MCH 30.9 pg (27.0-32.0); Mean Platelet Volume 9.7 FL (9.5-12.2); Monocytes # (A) 1.19 X 10*3/uL (0.20-1.00); Monocytes % (A) 11.1 %; NRBC Per 100 WBC 0 X 10*3/uL (0.00-0.01); Neutrophils # (A) 7.52 X 10*3/uL (1.80-7.70); Neutrophils % (A) 69.8 %; Platelet Count 286 X 10*3/uL (140-440); RBC 4.11 X 10*6/uL (4.10-5.20); RDW 14.5 % (11.5-14.5); WBC 10.76 X 10*3/uL (4.50-10.00)
[2023-10-30 11:40] VITALS: PULSE 77
[2023-10-30] MEDS: ASPIRIN 81 MG PO SCH (12:19)
[2023-10-30] MEDS: ASCORBIC ACID 500 MG TAB PO SCH (12:19)
[2023-10-30] MEDS: VIT A,C & E-LUTEIN-MINERALS 1 EACH TAB PO SCH (12:19)
[2023-10-30 12:38] VITALS: BP 144/82; TEMP 98.6
--- NOTE | 2023-11-01 15:20 | P.DS ---
Providers Date of admission: 10/30/23 08:32 Expected date of discharge: 10/30/23 Attending physician: Matthew Myers Consults: 10/28/23 14:36 Consult Physician Routine Consulting Provider: Rocky Covington Consult Reason/Comments: cva Do you want consulting provider notified?: Yes Primary care physician: Matthew [facility] Course: Final Diagnoses: Acute UTI in a patient with history of recurrent UTIs, DC'd on Ceftin, recheck outpatient. Dehydration secondary to the above Hyponatremia secondary to the above, resolved with IV fluid hydration Increased confusion, weakness , acute metabolic encephalopathy secondary to the above, in a patient with baseline progressive dementia. Returned to baseline. Degenerative disc disease L5 to S1 Atelectasis Hypertension Hyperlipidemia Hospital course:This is a pleasant 83-year-old female with past medical history significant for recurrent UTIs ,dementia, hypertension, hyperlipidemia, degenerative disc disease, nonobstructing renal calculi and multiple other medical issues presented to the ER with complaints of altered mental status, increased confusion, increased weakness-not getting out of bed and suspected UTI. Afebrile, WBC 13.3, renal function stable. UA reported many WBC clumps, greater than 182 WBCs, large leukocytes, negative nitrates. EKG reported sinus rhythm, sinus arrhythmia, right bundle branch block, troponin negative times one. Currently nonverbal. Maintain gentle IV fluid hydration. IV antibiotics of ceftriaxone resumed. Urine culture in progress. PPI in place for GI prophylaxis. PT consulted. Daughter at bedside, updated on plan of care. Discharge planning in progress for tomorrow. Significant clinical improvement, evaluated and cleared by neurology for discharge. Patient will be discharged home today in a stable condition with guarded prognosis. The impression and plan of care has been dictated as directed. : I performed a history and examination of this patient, discussed the same with the dictator. I agree with the dictator's note ,documented as a scribe. Any additional findings or plans will be noted. Patient Condition at Discharge: Stable Plan - Discharge Summary Discharge Rx Participant: No New Discharge Prescriptions: New Cefuroxime [Ceftin] 250 mg PO BID 3 Days #6 tab Continue Simvastatin [Zocor] 20 mg PO HS Losartan Potassium 100 mg PO DAILY Loratadine [Claritin] 10 mg PO DAILY Aspirin EC [Ecotrin Low Dose] 81 mg PO DAILY Calcium/Magnesium/Vitamin D3/K2 266mg/133mg/8.3mcg/30mcg 0.5 tab PO DAILY Brexpiprazole [Rexulti] 1 mg PO DAILY Methenamine Hippurate [Hiprex] 1 gm PO DAILY Donepezil HCl [Aricept] 10 mg PO HS hydroCHLOROthiazide 12.5 mg PO DAILY Levothyroxine Sodium [Synthroid] 100 mcg PO DAILY Vit C/E/Zn/Coppr/Lutein/Zeaxan [Preservision Areds 2 Softgel] 1 cap PO DAILY Ascorbic Acid [Vitamin C] 500 mg PO DAILY Multivit with Calcium,Iron,Min [Women's Multivitamin] 1 tab PO DAILY Tamsulosin [Flomax] 0.4 mg PO DAILY Discharge Medication List Loratadine [Claritin] 10 mg PO DAILY 03/07/16 [History] Losartan Potassium 100 mg PO DAILY 03/07/16 [History] Simvastatin [Zocor] 20 mg PO HS 03/07/16 [History] Aspirin EC [Ecotrin Low Dose] 81 mg PO DAILY 04/27/23 [History] Donepezil HCl [Aricept] 10 mg PO HS 04/27/23 [History] Levothyroxine Sodium [Synthroid] 100 mcg PO DAILY 04/27/23 [History] Vit C/E/Zn/Coppr/Lutein/Zeaxan [Preservision Areds 2 Softgel] 1 cap PO DAILY 04/27/23 [History] hydroCHLOROthiazide 12.5 mg PO DAILY 04/27/23 [History] Ascorbic Acid [Vitamin C] 500 mg PO DAILY 10/28/23 [History] Brexpiprazole [Rexulti] 1 mg PO DAILY 10/28/23 [History] Calcium/Magnesium/Vitamin D3/K2 266mg/133mg/8.3mcg/30mcg 0.5 tab PO DAILY 10/28/23 [History] Methenamine Hippurate [Hiprex] 1 gm PO DAILY 10/28/23 [History] Multivit with Calcium,Iron,Min [Women's Multivitamin] 1 tab PO DAILY 10/28/23 [History] Tamsulosin [Flomax] 0.4 mg PO DAILY 10/28/23 [History] Cefuroxime [Ceftin] 250 mg PO BID 3 Days #6 tab 10/30/23 [Rx] Follow up Appointment(s)/Referral(s): Matthew Myers DO [Primary Care Provider] - 11/05/23 9:10 am Volodymyr Foy [NON-STAFF] - 1 Week Patient Instructions/Handouts: Cefuroxime (By mouth), Weakness (DC), Altered Mental Status (ED), Urinary Tract Infection in Older Adults (DC) Discharge Disposition: HOME SELF-CARE
== END 2023-10-30 15:31 | disposition home or self-care (01) ==
LOC: EC 08:31 → 5NMEDONC 14:36 → UNDOADMOB 14:38 → 5NMEDONC 14:38 → OBSVTOIN 10-30 08:32 → INTOOBSV 10-30 08:32 → UNDODISIN 10-30 15:31
PROVIDERS: ADMIT Family Medicine; ATTEND Family Medicine
DX: N39.0 Urinary tract infection, site not specified (principal); G93.41 Metabolic encephalopathy; E87.1 Hypo-osmolality and hyponatremia; E86.0 Dehydration; F03.C0 Unspecified dementia, severe, without behavioral disturbance, psychotic disturbance, mood disturbance, and anxiety; I10 Essential (primary) hypertension; E78.5 Hyperlipidemia, unspecified; I45.10 Unspecified right bundle-branch block; M51.37 Other intervertebral disc degeneration, lumbosacral region; J98.11 Atelectasis; R29.810 Facial weakness; Z79.82 Long term (current) use of aspirin; Z79.890 Hormone replacement therapy; Z79.899 Other long term (current) drug therapy; Z91.018 Allergy to other foods; Z88.2 Allergy status to sulfonamides; Z87.442 Personal history of urinary calculi; Z87.440 Personal history of urinary (tract) infections
CPT/HCPCS: 96361 ×2; 96365; 96366 ×2; 96367; 96376; 51701; 99285; 36415; 93005; 97530; 97162; 83880; 80053 ×2; 80048; 83605; 83735 ×2; 84100 ×2; 84484; 85025 ×3; 85610; 85730; 81001; 87086; G0378 ×3; J1956 ×2; J0696 ×3; C9113; 96360; 96375

== ENCOUNTER 2023-12-13 17:26 | Observation (INO) | payer MEDICARE ==
--- NOTE | 2023-12-13 18:16 | ED ---
General Adult HPI - General Chief complaint: Altered Mental Status Stated complaint: UTI Time Seen by Provider: 12/13/23 17:30 Source: patient, RN notes reviewed, old records reviewed Mode of arrival: EMS Limitations: no limitations - History of Present Illness Initial comments: This is an 83-year-old female who presents to the emergency department with her daughter who states she is recently diagnosed with a urinary tract infection. Patient has been becoming more weak and confused and a little combative which is typical for her when she has an infection. Patient states they were told to bring in by the doctor because it did not appear that the antibiotics were taking hold quick enough. Patient has had no fever chills patient's had no vomiting or diarrhea. Patient is unable to give accurate history. But the daughter states this is definitely how she acts when infection gets worse. - Related Data Home Medications Medication Instructions Recorded Confirmed Loratadine [Claritin] 10 mg PO DAILY 03/07/16 10/28/23 Losartan Potassium 100 mg PO DAILY 03/07/16 10/28/23 Simvastatin [Zocor] 20 mg PO HS 03/07/16 10/28/23 Aspirin EC [Ecotrin Low Dose] 81 mg PO DAILY 04/27/23 10/28/23 Donepezil HCl [Aricept] 10 mg PO HS 04/27/23 10/28/23 Levothyroxine Sodium [Synthroid] 100 mcg PO DAILY 04/27/23 10/28/23 Vit C/E/Zn/Coppr/Lutein/Zeaxan 1 cap PO DAILY 04/27/23 10/28/23 [Preservision Areds 2 Softgel] hydroCHLOROthiazide 12.5 mg PO DAILY 04/27/23 10/28/23 Ascorbic Acid [Vitamin C] 500 mg PO DAILY 10/28/23 10/28/23 Brexpiprazole [Rexulti] 1 mg PO DAILY 10/28/23 10/28/23 Calcium/Magnesium/Vitamin D3/K2 0.5 tab PO DAILY 10/28/23 10/28/23 266mg/133mg/8.3mcg/30mcg Methenamine Hippurate [Hiprex] 1 gm PO DAILY 10/28/23 10/28/23 Multivit with Calcium,Iron,Min 1 tab PO DAILY 10/28/23 10/28/23 [Women's Multivitamin] Tamsulosin [Flomax] 0.4 mg PO DAILY 10/28/23 10/28/23 Previous Rx's Medication Instructions Recorded Cefuroxime [Ceftin] 250 mg PO BID 3 Days #6 tab 10/30/23 Allergies Allergy/AdvReac Type Severity Reaction Status Date / Time corn AdvReac migraines Verified 12/13/23 17:37 Sulfa (Sulfonamide AdvReac Rash/Hives Verified 12/13/23 17:37 Antibiotics) Review of Systems ROS Statement: Those systems with pertinent positive or pertinent negative responses have been documented in the HPI. ROS Other: All systems not noted in ROS Statement are negative. Past Medical History Past Medical History: Dementia, Hyperlipidemia, Hypertension, Thyroid Disorder History of Any Multi-Drug Resistant Organisms: None Reported Past Surgical History: Hysterectomy, Tonsillectomy Additional Past Surgical History / Comment(s): marc cataracts Past Anesthesia/Blood Transfusion Reactions: No Reported Reaction Past Psychological History: No Psychological Hx Reported Smoking Status: Never smoker Past Alcohol Use History: None Reported Past Drug Use History: None Reported - Past Family History Mother Family Medical History: No Reported History Father Family Medical History: Myocardial Infarction (HI) Additional Family Medical History / Comment(s): heart problems Brother(s) Family Medical History: Coronary Artery Disease (CAD) Additional Family Medical History / Comment(s): heart stents General Exam - General Exam Comments Initial Comments: GENERAL: Patient is well-developed and well-nourished. Patient is nontoxic and well- hydrated and is in no acute distress. ENT: Neck is soft and supple. No significant lymphadenopathy is noted. Oropharynx is clear. Moist mucous membranes. Neck has full range of motion without eliciting any pain.were felt. EYES: The sclera were anicteric and conjunctiva were pink and moist. Extraocular movements were intact and pupils were equal round and reactive to light. Eyelids were unremarkable. PULMONARY: Unlabored respirations. Good breath sounds bilaterally. No audible rales rhonchi or wheezing was noted. CARDIOVASCULAR: There is a regular rate and rhythm without any murmurs gallops or rubs. ABDOMEN: Soft and nontender with normal bowel sounds. SKIN: Skin is clear with no lesions or rashes and otherwise unremarkable. NEUROLOGIC: Patient is alert and oriented x 2. Cranial nerves II through XII are grossly intact. Motor and sensory are also intact. Normal speech, volume and content. MUSCULOSKELETAL: Normal extremities with adequate strength and full range of motion. LYMPHATICS: No significant lymphadenopathy is noted PSYCHIATRIC: Unable to assess Limitations: no limitations Course Vital Signs 12/13/23 12/13/23 12/13/23 17:29 18:37 19:45 Temperature 97.9 F Pulse Rate 75 70 65 Respiratory 16 16 17 Rate Blood Pressure 185/86 147/81 182/84 O2 Sat by Pulse 95 99 96 Oximetry Medical Decision Making - Medical Decision Making EKG is interpreted by myself. EKG shows a sinus rhythm at 68 bpm parable 162 QRS 132 QT interval is 421 QTc is 438. Patient's EKG shows a right bundle branch block Was pt. sent in by a medical professional or institution ([facility], DOUBLE NEEDLE OPERATOR LOCKSTITCH, urgent care, hospital, or senior care...) When possible be specific @ -No Did you speak to anyone other than the patient for history (EMS, parent, family, police, friend...)? What history was obtained from this source @ -Daughter gave all of the history because patient was altered and was unable to Did you review nursing and triage notes (agree or disagree)? Why? @ -I reviewed and agree with nursing and triage notes Were old charts reviewed (outside hosp., previous admission, EMS record, old EKG, old radiological studies, urgent care reports/EKG's, senior care records)? Report findings @ -No old charts were reviewed Differential Diagnosis? @ -Differential Altered Mental Status: Hypoglycemia, DKA, hypercapnia, ETOH, overdose, CO poisoning, trauma, myxedema coma, HTN encephalopathy, infection, encephalitis, psychosis, intercranial hemorrhage, hepatic encephalopathy, meningitis, CVA, this is not meant to be an all-inclusive list EKG interpreted by me (3pts min.). @ -As above X-rays interpreted by me (1pt min.). @ -None done CT interpreted by me (1pt min.). @ -None done U/S interpreted by me (1pt. min.). @ -None done What testing was considered but not performed or refused? (CT, X-rays, U/S, labs)? Why? @ -None What meds were considered but not given or refused? Why? @ -None Did you discuss the management of the patient with other professionals (professionals i.e. Dr., PA, DOUBLE NEEDLE OPERATOR LOCKSTITCH, lab, RT, psych nurse, social media intern, invasive cardiovascular technologist, teacher, biosecurity officer, gearcase assembler)? Give summary @ -I spoke with Dr. Abdullahi and she agreed to admit the patient to the patient wrote admitting orders Was smoking cessation discussed for >3mins.? @ -No Was critical care preformed (if so, how long)? @ -No Were there social determinants of health that impacted care today? How? (Homelessness, low income, unemployed, alcoholism, drug addiction, transportatio n, low edu. Level, literacy, decrease access to med. care, senior living, rehab)? @ -No Was there de-escalation of care discussed even if they declined (Discuss DNR or withdrawal of care, Hospice)? DNR status @ -No What co-morbidities impacted this encounter? (DM, HTN, Smoking, COPD, CAD, Cancer, CVA, ARF, Chemo, Hep., AIDS, mental health diagnosis, sleep apnea, morbid obesity)? @ -None Was patient admitted / discharged? Hospital course, mention meds given and route, prescriptions, significant lab abnormalities, going to OR and other pertinent info. @ -Patient was given 2 g Rocephin because of the urinary tract infection. Patient's lab work was within normal range. Patient will be admitted to [facility] with continued antibiotics Undiagnosed new problem with uncertain prognosis? @ -No Drug Therapy requiring intensive monitoring for toxicity (Heparin, Nitro, Insulin, Cardizem)? @ -No Were any procedures done? @ -No Diagnosis/symptom? @ -Altered mental status Acute, or Chronic, or Acute on Chronic? @ -Acute Uncomplicated (without systemic symptoms) or Complicated (systemic symptoms)? @ -Complicated Side effects of treatment? @ -No Exacerbation, Progression, or Severe Exacerbation? @ -No Poses a threat to life or bodily function? How? (Chest pain, USA, HI, pneumonia, PE, COPD, DKA, ARF, appy, cholecystitis, CVA, Diverticulitis, Homicidal, Suicidal, threat to staff... and all critical care pts) @ -No Diagnosis/symptom? @ -Urinary tract infection Acute, or Chronic, or Acute on Chronic? @ -Acute Uncomplicated (without systemic symptoms) or Complicated (systemic symptoms)? @ -Complicated Side effects of treatment? @ -None Exacerbation, Progression, or Severe Exacerbation] @ -No Poses a threat to life or bodily function? @ -Yes this could lead to sepsis and end organ dysfunction - Lab Data Result diagrams: 12/13/23 19:12 12/13/23 19:12 Lab Results 12/13/23 12/13/23 12/13/23 Range/Units 19:12 19:12 19:40 WBC 7.5 (3.8-10.6) k/uL RBC 3.94 (3.80-5.40) m/uL Hgb 12.1 (11.4-16.0) gm/dL Hct 36.2 (34.0-46.0) % MCV 91.7 (80.0-100.0) fL MCH 30.6 (25.0-35.0) pg MCHC 33.4 (31.0-37.0) g/dL RDW 13.6 (11.5-15.5) % Plt Count 221 (150-450) k/uL MPV 7.2 Neutrophils % 53 % Lymphocytes % 33 % Monocytes % 8 % Eosinophils % 3 % Basophils % 1 % Neutrophils # 4.0 (1.3-7.7) k/uL Lymphocytes # 2.5 (1.0-4.8) k/uL Monocytes # 0.6 (0-1.0) k/uL Eosinophils # 0.2 (0-0.7) k/uL Basophils # 0.1 (0-0.2) k/uL Sodium 135 L (137-145) mmol/L Potassium 3.5 (3.5-5.1) mmol/L Chloride 107 (98-107) mmol/L Carbon Dioxide 25 (22-30) mmol/L Anion Gap 3 mmol/L BUN 11 (7-17) mg/dL Creatinine 0.61 (0.52-1.04) mg/dL Est GFR (CKD-EPI)AfAm >90 (>60 ml/min/1.73 sqM) Est GFR (CKD-EPI)NonAf 85 (>60 ml/min/1.73 sqM) Glucose 89 (74-99) mg/dL Plasma Lactic Acid Carl 1.3 (0.7-2.0) mmol/L Calcium 8.4 (8.4-10.2) mg/dL Total Bilirubin 0.4 (0.2-1.3) mg/dL AST 27 (14-36) U/L ALT 17 (4-34) U/L Alkaline Phosphatase 58 (38-126) U/L Total Protein 5.6 L (6.3-8.2) g/dL Albumin 3.0 L (3.5-5.0) g/dL Disposition Clinical Impression: Urinary tract infection, Altered mental status Disposition: ADMITTED IP TO THIS HOSP Referrals: Matthew Myers DO [Primary Care Provider] - 1-2 days Time of Disposition: 21:27
[2023-12-13] MEDS: SODIUM CHLORIDE 0.9% 500 ML 500 ML IV SCH (18:50)
[2023-12-13] MEDS: cefTRIAXone IN SWFI 1,000 MG/10 ML SYRINGE IVP STA ×2 (19:12→19:13)
[2023-12-13 20:34] LABS: Basophils # (A) 0.1 k/uL (0-0.2); Basophils % (A) 1 %; Eosinophils # (A) 0.2 k/uL (0-0.7); Eosinophils % (A) 3 %; HCT 36.2 % (34.0-46.0); HGB 12.1 gm/dL (11.4-16.0); Lymphocytes # (A) 2.5 k/uL (1.0-4.8); Lymphocytes % (A) 33 %; MCH 30.6 pg (25.0-35.0); MCHC 33.4 g/dL (31.0-37.0); MCV 91.7 fL (80.0-100.0); Mean Platelet Volume 7.2; Monocytes # (A) 0.6 k/uL (0-1.0); Monocytes % (A) 8 %; Neutrophils % (A) 53 %; Platelet Count 221 k/uL (150-450); RBC 3.94 m/uL (3.80-5.40); RDW 13.6 % (11.5-15.5); WBC 7.5 k/uL (3.8-10.6)
[2023-12-13 20:45] LABS: ALT 17 U/L (4-34); AST 27 U/L (14-36); African American GFR (CKD) >90 (>60 ml/min/1.73 sqM); Alkaline Phosphatase 58 U/L (38-126); Anion Gap 3 mmol/L; Blood Urea Nitrogen 11 mg/dL (7-17); Calcium 8.4 mg/dL (8.4-10.2); Carbon Dioxide 25 mmol/L (22-30); Chloride 107 mmol/L (98-107); Glucose 89 mg/dL (74-99); Non-African American GFR(CKD) 85 (>60 ml/min/1.73 sqM); Potassium 3.5 mmol/L (3.5-5.1); Sodium 135 mmol/L (137-145); Total Bilirubin 0.4 mg/dL (0.2-1.3); Total Protein 5.6 g/dL (6.3-8.2)
[2023-12-13 21:27] LABS: Appearance,Urine Clear (Clear); Bilirubin,Urine Negative (Negative); Blood,Urine Negative (Negative); Color,Urine Light Yellow; Glucose,Urine (UA) Negative (Negative); Ketones,Urine Negative (Negative); Leukocyte Esterase,Urine Negative (Negative); Nitrite,Urine Negative (Negative); Protein,Urine Negative (Negative); Specific Gravity,Urine 1.007 (1.001-1.035); Urobilinogen,Urine <2.0 mg/dL (<2.0)
[2023-12-13] MEDS: SODIUM CHLORIDE 0.9% 1,000 ML IV ONE (22:09)
[2023-12-13] MEDS: hydrALAZINE HCL 20 MG/ML 1 ML VIAL IVP STA (23:23)
[2023-12-14] MEDS ORDERED: NALOXONE 0.4 MG/ML 1 ML VIAL IV PRN (15:48)
--- NOTE | 2023-12-14 15:52 | P.HPIM ---
History of Present Illness H&P Date: 12/14/23 History of present illness; 83-year-old female with past medical history significant for dementia, history of recurrent UTIs leading to confusion, hypertension, hyperlipidemia, hypothyroidism who was brought to the hospital for concern of worsening weakness and confusion and mild combative nests which was typical symptoms for patient's UTI. Patient was recently diagnosed with UTI, received 2 dosages of Macrobid on and Saturday and was brought to the hospital for worsening above symptoms. Patient also reported back pain initially in the ED, currently resolved. Patient was advised by the doctor that antibiotics would not improving the symptoms quick enough and recommended to come to the hospital. Daughter at bedside, patient has dementia, limited review of system, daughter reported that patient did not have any fever, chills, night sweats, productive cough, sore throat, shortness of breath, chest pain, nausea vomiting diarrhea constipation or abdominal pain. Vitals are stable, patient afebrile, heart rate 76, respiratory rate 17, blood pressure 129/77. Saturating 96% on room air. CBC was unremarkable with normal WBC count. CMP also unremarkable, mildly low sodium 135. UA negative. REVIEW OF SYSTEMS: CONSTITUTIONAL: No fever, no malaise, no fatigue. HEENT: No recent visual problems or hearing problems. Denied any sore throat. CARDIOVASCULAR: No chest pain, orthopnea, PND, no palpitations, no syncope. PULMONARY: No shortness of breath, no cough, no hemoptysis. GASTROINTESTINAL: No diarrhea, no nausea, no vomiting, no abdominal pain. NEUROLOGICAL: No headaches, no weakness, no numbness. HEMATOLOGICAL: Denies any bleeding or petechiae. GENITOURINARY: Denies any burning micturition, frequency, or urgency. MUSCULOSKELETAL/RHEUMATOLOGICAL: Denies any joint pain, swelling, or any muscle pain. ENDOCRINE: Denies any polyuria or polydipsia. The rest of the 14-point review of systems is negative. PHYSICAL EXAMINATION: GENERAL: The patient is alert and oriented x1, not in any acute distress. Well developed, well nourished. HEENT: Pupils are round and equally reacting to light. EOMI. No scleral icterus. No conjunctival pallor. Normocephalic, atraumatic. No pharyngeal erythema. No thyromegaly. CARDIOVASCULAR: S1 and S2 present. No murmurs, rubs, or gallops. PULMONARY: Chest is clear to auscultation, no wheezing or crackles. ABDOMEN: Soft, nontender, nondistended, normoactive bowel sounds. No palpable organomegaly. MUSCULOSKELETAL: No joint swelling or deformity. EXTREMITIES: No cyanosis, clubbing, or pedal edema. NEUROLOGICAL: Gross neurological examination did not reveal any focal deficits. SKIN: No rashes. Assessment and plan Acute metabolic encephalopathy: History of dementia: UTI: Brought in for worsening weakness, confusion, recently treated for UTI for 1 day. Urine unremarkable could be secondary to outpatient antibiotics. Urine culture next blood culture Rocephin Neurochecks Frequent reorientation Resume home meds PT/OT consult. Case management consult. DVT prophylaxis: Subcutaneous Lovenox Monitor vital signs Monitor CBC Monitor CMP Continue telemetry monitoring Labs and medication were reviewed.. Continue same treatment. Continue with symptomatic treatment. Resume home medication. Monitor labs and vitals. Further recommendations as per clinical course of the patient Dictation was produced using [employer] dictation software. please excuse any grammatical, word or spelling errors. Past Medical History Past Medical History: Dementia, Hyperlipidemia, Hypertension, Thyroid Disorder History of Any Multi-Drug Resistant Organisms: None Reported Past Surgical History: Hysterectomy, Tonsillectomy Additional Past Surgical History / Comment(s): marc cataracts Past Anesthesia/Blood Transfusion Reactions: No Reported Reaction Past Psychological History: No Psychological Hx Reported Smoking Status: Never smoker Past Alcohol Use History: None Reported Past Drug Use History: None Reported - Past Family History Mother Family Medical History: No Reported History Father Family Medical History: Myocardial Infarction (AL) Additional Family Medical History / Comment(s): heart problems Brother(s) Family Medical History: Coronary Artery Disease (CAD) Additional Family Medical History / Comment(s): heart stents Medications and Allergies Home Medications Medication Instructions Recorded Confirmed Type Loratadine [Claritin] 10 mg PO DAILY 03/07/16 12/14/23 History Losartan Potassium 100 mg PO DAILY 03/07/16 12/14/23 History Simvastatin [Zocor] 20 mg PO HS 03/07/16 12/14/23 History Aspirin EC [Ecotrin Low Dose] 81 mg PO DAILY 04/27/23 12/14/23 History Donepezil HCl [Aricept] 10 mg PO HS 04/27/23 12/14/23 History Levothyroxine Sodium [Synthroid] 100 mcg PO DAILY 04/27/23 12/14/23 History Vit C/E/Zn/Coppr/Lutein/Zeaxan 1 cap PO DAILY 04/27/23 12/14/23 History [Preservision Areds 2 Softgel] hydroCHLOROthiazide 12.5 mg PO DAILY 04/27/23 12/14/23 History Ascorbic Acid [Vitamin C] 500 mg PO DAILY 10/28/23 12/14/23 History Brexpiprazole [Rexulti] 1 mg PO DAILY 10/28/23 12/14/23 History Calcium/Magnesium/Vitamin D3/K2 0.5 tab PO DAILY 10/28/23 12/14/23 History 266mg/133mg/8.3mcg/30mcg Methenamine Hippurate [Hiprex] 1 gm PO DAILY 10/28/23 12/14/23 History Multivit with Calcium,Iron,Min 1 tab PO DAILY 10/28/23 12/14/23 History [Women's Multivitamin] Tamsulosin [Flomax] 0.4 mg PO DAILY 10/28/23 12/14/23 History Nitrofurantoin Monohyd/M-Cryst 100 mg PO Q12HR 12/14/23 12/14/23 History [Macrobid] Allergies Allergy/AdvReac Type Severity Reaction Status Date / Time corn AdvReac migraines Verified 12/14/23 09:09 Sulfa (Sulfonamide AdvReac Rash/Hives Verified 12/14/23 09:09 Antibiotics) Physical Exam Vitals: Vital Signs Temp Pulse Pulse Resp BP BP Pulse Ox 12/14/23 15:00 97.9 F 76 17 129/77 96 12/14/23 07:00 98.3 F 73 16 157/84 97 12/14/23 01:56 98.4 F 86 16 163/84 95 12/13/23 22:39 98.3 F 60 16 179/87 95 12/13/23 21:58 61 17 172/88 95 12/13/23 19:45 65 17 182/84 96 12/13/23 18:37 70 16 147/81 99 12/13/23 17:29 97.9 F 75 16 185/86 95 Intake and Output 12/14/23 12/14/23 12/14/23 06:59 14:59 22:59 Intake Total 236 Output Total 350 500 Balance -350 236 -500 Intake: Oral 236 Output: Urine 350 500 Other: Voiding Method External Catheter # Voids 1 Results CBC & Chem 7: 12/13/23 19:12 12/13/23 19:12 Labs: Abnormal Lab Results - Last 24 Hours (Table) 12/13/23 Range/Units 19:12 Sodium 135 L (137-145) mmol/L Total Protein 5.6 L (6.3-8.2) g/dL Albumin 3.0 L (3.5-5.0) g/dL Thrombosis Risk Factor Assmnt - Choose All That Apply Each Risk Factor Represents 3 Points: Age 75 years or older Thrombosis Risk Factor Assessment Total Risk Factor Score: 3 Thrombosis Risk Factor Assessment Level: Moderate Risk
[2023-12-14] MEDS: NON FORMULARY DRUG (Brexpiprazole [Rexulti] 1 MG Tablet) PO SCH (16:41)
[2023-12-14] MEDS: LOSARTAN 50 MG TAB PO SCH (16:55)
[2023-12-14] MEDS: CALCIUM CARB-VIT D 500 MG-5 MCG TAB PO SCH (16:55)
[2023-12-14] MEDS: ENOXAPARIN 40 MG/0.4 ML SYRINGE SQ SCH (16:55)
[2023-12-14] MEDS: ASCORBIC ACID 500 MG TAB PO SCH (16:56)
[2023-12-14] MEDS: ASPIRIN 81 MG PO SCH (16:56)
[2023-12-14] MEDS: SODIUM CHLORIDE 0.9% 1,000 ML IV SCH (16:56)
[2023-12-14] MEDS: TAMSULOSIN 0.4 MG CAP.ER.24H PO SCH (16:56)
[2023-12-14] MEDS: DONEPEZIL 10 MG TAB PO SCH (20:33)
[2023-12-14] MEDS: ATORVASTATIN 10 MG TAB PO SCH (20:33)
[2023-12-15] MEDS: LEVOTHYROXINE 100 MCG TAB PO SCH (06:28)
[2023-12-15] MEDS: MULTIVITAMINS, THERA 1 EACH TAB PO SCH (08:36)
[2023-12-15] MEDS: VIT A,C & E-LUTEIN-MINERALS 1 EACH TAB PO SCH (08:36)
[2023-12-15] MEDS: polyethylene glycoL 3350 17 GM POWD.PACK PO SCH (08:37)
[2023-12-15 09:30] LABS: Basophils # (A) 0.08 X 10*3/uL (0.00-0.10); Basophils % (A) 1.1 %; Eosinophils # (A) 0.56 X 10*3/uL (0.04-0.35); Eosinophils % (A) 7.4 %; HCT 34.2 % (37.2-46.3); HGB 11.4 g/dL (12.0-15.0); Lymphocytes # (A) 2.36 X 10*3/uL (0.90-5.00); MCHC 33.3 g/dL (32.0-37.0); Mean Platelet Volume 9.4 FL (9.5-12.2); Monocytes # (A) 0.87 X 10*3/uL (0.20-1.00); Monocytes % (A) 11.4 %; NRBC Per 100 WBC 0 X 10*3/uL (0.00-0.01); Neutrophils % (A) 48.6 %; Platelet Count 240 X 10*3/uL (140-440); RDW 14.2 % (11.5-14.5); WBC 7.61 X 10*3/uL (4.50-10.00)
[2023-12-15 09:39] LABS: BUN/Creat Ratio 17.29 Ratio (12.00-20.00); Blood Urea Nitrogen 12.1 mg/dL (9.0-27.0); Calcium 8.4 mg/dL (8.7-10.3); Carbon Dioxide 21.9 mmol/L (21.6-31.8); Chloride 106 mmol/L (96-109); Glucose 105 mg/dL (70-110); Magnesium 1.9 mg/dL (1.5-2.4); Potassium 3.9 mmol/L (3.5-5.5); Sodium 138 mmol/L (135-145)
[2023-12-15] MEDS: NON FORMULARY DRUG (Methenamine Hippurate [Hiprex] 1 GM Tablet) PO SCH (12:41)
[2023-12-15] MEDS: NON FORMULARY DRUG (Brexpiprazole [Rexulti] 1 MG Tablet) PO SCH (13:34)
--- NOTE | 2023-12-15 15:29 | P.PN ---
Subjective Progress Note Date: 12/15/23 Interval History: Patient was seen and examined today. Daughter at bedside. Confusion is better as compared to yesterday, confusion gradually improving per family. Patient oriented to person and place, able to tell date of . Remained afebrile, heart rate 80, respiratory rate 16, blood pressure 169/77, saturating 96% on room air. WBC 7.6, hemoglobin 11.4, platelet 240. BMP unremarkable. REVIEW OF SYSTEMS: CONSTITUTIONAL: No fever, no malaise,. CARDIOVASCULAR: No chest pain, no palpitations, no syncope. PULMONARY: No shortness of breath, no cough, GASTROINTESTINAL: No diarrhea, no nausea, no vomiting, no abdominal pain. NEUROLOGICAL: No headaches, no weakness, PHYSICAL EXAMINATION: GENERAL: The patient is alert and oriented x3, not in any acute distress. Well developed, well nourished. HEENT: Pupils are round and equally reacting to light. EOMI. No scleral icterus. No conjunctival pallor. Normocephalic, atraumatic. No pharyngeal erythema. No thyromegaly. CARDIOVASCULAR: S1 and S2 present. No murmurs, rubs, or gallops. PULMONARY: Chest is clear to auscultation, no wheezing or crackles. ABDOMEN: Soft, nontender, nondistended, normoactive bowel sounds. No palpable organomegaly. MUSCULOSKELETAL: No joint swelling or deformity. EXTREMITIES: No cyanosis, clubbing, or pedal edema. NEUROLOGICAL: Gross neurological examination did not reveal any focal deficits. SKIN: No rashes. Assessment and plan Acute metabolic encephalopathy: Improving History of dementia: UTI: Brought in for worsening weakness, confusion, recently treated for UTI for 1 day. Urine unremarkable could be secondary to outpatient antibiotics. Urine culture next blood culture Rocephin--anticipate 3 days Neurochecks Frequent reorientation Resume home meds PT/OT consult--anticipate subacute rehab. Case management consult. DVT prophylaxis: Subcutaneous Lovenox Dictation was produced using [employer] dictation software. please excuse any grammatical, word or spelling errors. Objective - Vital Signs Vital signs: Vital Signs Temp 98 F 12/15/23 15:00 Pulse 80 12/15/23 15:00 Resp 16 12/15/23 15:00 BP 169/77 12/15/23 15:00 Pulse Ox 96 12/15/23 15:00 FiO2 Intake & Output 12/14/23 12/15/23 12/15/23 18:59 06:59 18:59 Intake Total 236 208 Output Total 1100 960 Balance -864 -960 208 Intake: Oral 236 208 Output: Urine 1100 960 Other: Voiding Method External Catheter External Catheter External Catheter # Voids 1 # Bowel Movements 0 - Labs CBC & Chem 7: 12/15/23 03:03 12/15/23 03:03 Labs: Abnormal Lab Results - Last 24 Hours (Table) 12/15/23 12/15/23 Range/Units 03:03 03:03 RBC 3.80 L (4.10-5.20) X 10*6/uL Hgb 11.4 L (12.0-15.0) g/dL Hct 34.2 L (37.2-46.3) % MPV 9.4 L (9.5-12.2) FL Eosinophils # 0.56 H (0.04-0.35) X 10*3/uL Calcium 8.4 L (8.7-10.3) mg/dL Microbiology - Last 24 Hours (Table) 12/13/23 18:45 Blood Culture - Preliminary Blood 12/13/23 19:00 Blood Culture - Preliminary Blood
[2023-12-16] MEDS: LORATADINE 10 MG TAB PO SCH (09:29)
[2023-12-16] MEDS: hydroCHLOROthiazide 12.5 MG CAP PO SCH (09:29)
--- NOTE | 2023-12-16 11:21 | P.DS ---
Providers Date of admission: 12/13/23 21:31 Expected date of discharge: 12/16/23 Attending physician: Matthew Myers Primary care physician: Matthew Myers [facility] Course: Final Diagnoses: Acute metabolic encephalopathy secondary to recurrent UTI, in a patient with baseline progressive dementia, returned to baseline. Recently diagnosed with acute UTI at PCPs office, completed 1 day of antibiotics with worsening of symptoms.urine unremarkable secondary to outpatient antibiotics. Preliminary blood cultures reporting no growth after 48 hours .significant improvement with IV antibiotic therapy. Hyponatremia, mild, secondary to the above, resolved with IV fluid hydration Degenerative disc disease L5 to S1 Hypertension Hyperlipidemia Hospital course:This is a pleasant 83-year-old female with past medical history significant for recurrent UTIs ,dementia, hypertension, hyperlipidemia, degenerative disc disease, nonobstructing renal calculi and multiple other medical issues presented to the ER with complaints of back pain, altered mental status, increased confusion, increased weakness. Patient recently diagnosed for UTI and had only received 2 doses of Macrobid prior to presenting to the ER. On admission CBC and CMP unremarkable with mild low sodium 135. afebrile, normal WBC .maintained on gentle IV fluid hydration, IV ceftriaxone with significant clinical improvement. Sitting up in bed, pleasant, eating breakfast. Denies nausea or vomiting. Denies chest pain, palpitations or shortness of breath. Denies urinary dysuria. Denies abdominal pain. Denies bilateral flank or back pain. daughter at bedside reports patient has returned to baseline. Patient will be discharged to subacute rehab today in a stable condition with guarded prognosis. The impression and plan of care has been dictated as directed. : I performed a history and examination of this patient, discussed the same with the dictator. I agree with the dictator's note ,documented as a scribe. Any additional findings or plans will be noted. Patient Condition at Discharge: Stable Plan - Discharge Summary New Discharge Prescriptions: New polyethylene glycoL 3350 [Miralax] 17 gm PO DAILY packet Acetaminophen Tab [Tylenol] 650 mg PO Q6HR PRN tab PRN Reason: Mild Pain Or Fever > 100.5 Cefuroxime [Ceftin] 250 mg PO BID 3 Days #6 tab Discontinued Nitrofurantoin Monohyd/M-Cryst [Macrobid] 100 mg PO Q12HR No Action Simvastatin [Zocor] 20 mg PO HS Losartan Potassium 100 mg PO DAILY Loratadine [Claritin] 10 mg PO DAILY Aspirin EC [Ecotrin Low Dose] 81 mg PO DAILY Calcium/Magnesium/Vitamin D3/K2 266mg/133mg/8.3mcg/30mcg 0.5 tab PO DAILY Brexpiprazole [Rexulti] 1 mg PO DAILY Methenamine Hippurate [Hiprex] 1 gm PO DAILY Donepezil HCl [Aricept] 10 mg PO HS hydroCHLOROthiazide 12.5 mg PO DAILY Levothyroxine Sodium [Synthroid] 100 mcg PO DAILY Vit C/E/Zn/Coppr/Lutein/Zeaxan [Preservision Areds 2 Softgel] 1 cap PO DAILY Ascorbic Acid [Vitamin C] 500 mg PO DAILY Multivit with Calcium,Iron,Min [Women's Multivitamin] 1 tab PO DAILY Tamsulosin [Flomax] 0.4 mg PO DAILY Discharge Medication List Loratadine [Claritin] 10 mg PO DAILY 03/07/16 [History] Losartan Potassium 100 mg PO DAILY 03/07/16 [History] Simvastatin [Zocor] 20 mg PO HS 03/07/16 [History] Aspirin EC [Ecotrin Low Dose] 81 mg PO DAILY 04/27/23 [History] Donepezil HCl [Aricept] 10 mg PO HS 04/27/23 [History] Levothyroxine Sodium [Synthroid] 100 mcg PO DAILY 04/27/23 [History] Vit C/E/Zn/Coppr/Lutein/Zeaxan [Preservision Areds 2 Softgel] 1 cap PO DAILY 04/27/23 [History] hydroCHLOROthiazide 12.5 mg PO DAILY 04/27/23 [History] Ascorbic Acid [Vitamin C] 500 mg PO DAILY 10/28/23 [History] Brexpiprazole [Rexulti] 1 mg PO DAILY 10/28/23 [History] Calcium/Magnesium/Vitamin D3/K2 266mg/133mg/8.3mcg/30mcg 0.5 tab PO DAILY 10/28/23 [History] Methenamine Hippurate [Hiprex] 1 gm PO DAILY 10/28/23 [History] Multivit with Calcium,Iron,Min [Women's Multivitamin] 1 tab PO DAILY 10/28/23 [History] Tamsulosin [Flomax] 0.4 mg PO DAILY 10/28/23 [History] Acetaminophen Tab [Tylenol] 650 mg PO Q6HR PRN tab 12/16/23 [Rx] Cefuroxime [Ceftin] 250 mg PO BID 3 Days #6 tab 12/16/23 [Rx] polyethylene glycoL 3350 [Miralax] 17 gm PO DAILY packet 12/16/23 [Rx] Follow up Appointment(s)/Referral(s): Matthew Myers DO [Primary Care Provider] - 1 Week (After DC from subacute rehab) Activity/Diet/Wound Care/Special Instructions: CLARA: CBC, BMP in 3 days Discharge Disposition: TRANSFER TO SNF/ECF
[2023-12-16] MEDS: POTASSIUM CHLORIDE ER 20 MEQ TAB.ER PO STA (13:00)
--- NOTE | 2023-12-18 04:45 | P.PN ---
Subjective Progress Note Date: 12/17/23 Interval History: Patient was seen and examined today. Daughter at bedside. Confusion is better as compared to yesterday, confusion gradually improving per family. Patient oriented to person and place, able to tell date of . Remained afebrile, heart rate 80, respiratory rate 16, blood pressure 169/77, saturating 96% on room air. WBC 7.6, hemoglobin 11.4, platelet 240. BMP unremarkable. REVIEW OF SYSTEMS: CONSTITUTIONAL: No fever, no malaise,. CARDIOVASCULAR: No chest pain, no palpitations, no syncope. PULMONARY: No shortness of breath, no cough, GASTROINTESTINAL: No diarrhea, no nausea, no vomiting, no abdominal pain. NEUROLOGICAL: No headaches, no weakness 12/17/2023 Patient is seen in follow-up this morning currently awake with daughter at the bedside. Patient's mentation is improving and appears to be somewhat at baseline per daughter. Patient is awaiting a bed at [facility] [place] and per social work there is a bed on 12/18/2023 and will be discharged. Patient is cu rrently maintained on ceftriaxone for urinary tract infection. Blood cultures are negative. Patient instructed and encouraged to increase activity as tolerated and would recommend PT/OT therapy daily. Encouraged oral intake. PHYSICAL EXAMINATION: GENERAL: The patient is alert and oriented x1-2, baseline, not in any acute distress. Well developed, well nourished. Elderly appearing, thin built HEENT: Pupils are round and equally reacting to light. EOMI. No scleral icterus. No conjunctival pallor. Normocephalic, atraumatic. No pharyngeal erythema. No thyromegaly. CARDIOVASCULAR: S1 and S2 present. No murmurs, rubs, or gallops. PULMONARY: Chest is clear to auscultation, no wheezing or crackles. ABDOMEN: Soft, nontender, nondistended, normoactive bowel sounds. No palpable organomegaly. MUSCULOSKELETAL: No joint swelling or deformity. EXTREMITIES: No cyanosis, clubbing, or pedal edema. NEUROLOGICAL: Gross neurological examination did not reveal any focal deficits. Diffusely weak SKIN: No rashes. Assessment: Acute metabolic encephalopathy multifactorial, likely secondary to acute urinary tract infection along with dementia, improving History of dementia UTI, present on admission History of hypertension History of hyperlipidemia Hypothyroidism GI prophylaxis DVT prophylaxis No code Plan: Patient will continue on IV antibiotics in the form of ceftriaxone and complete a 3-day course on discharge of oral antibiotics. Urine cultures repeated are negative blood cultures remain negative Recommend frequent reorientation with family at the bedside Discussed CODE STATUS and patient and family along with who is power of finance attorney report patient is no code Encouraged to increase activity as tolerated. Case management/social work following along with PT/OT therapy recommending rehab and patient and family are agreeable. They have decided at [facility] [place] and there is a bed available on 12/18/2023. Patient is medically stable and will be discharged in 24 hours The impression and plan of care has been dictated by Nurse Doreen Dietricht saúl as directed. Dr. Jenny MD I have performed a history and examination and MDM of this patient, discussed the same with the dictator, and agree with the dictator's assessment and plan as written ,documented as a scribe. Based on total visit time, I have performed more than 50% of the visit. Objective - Vital Signs Vital signs: Vital Signs Temp 97.9 F 12/17/23 07:10 Pulse 68 12/17/23 07:10 Resp 15 12/17/23 07:10 BP 153/79 12/17/23 07:10 Pulse Ox 97 12/17/23 07:10 FiO2 Intake & Output 12/16/23 12/17/23 12/17/23 18:59 06:59 18:59 Intake Total 576 480 240 Output Total 800 700 Balance -224 -220 240 Intake: Oral 576 480 240 Output: Urine 800 700 Other: Voiding Method External Catheter External Catheter # Voids 5 # Bowel Movements 1 - Labs CBC & Chem 7: 12/15/23 03:03 12/15/23 03:03 Labs: Microbiology - Last 24 Hours (Table) 12/13/23 18:45 Blood Culture - Preliminary Blood 12/13/23 19:00 Blood Culture - Preliminary Blood
[2023-12-18 07:50] VITALS: BP 164/80; PULSE 66; RESP 16; TEMP 97.8
[2023-12-18] MEDS: ACETAMINOPHEN TAB 325 MG TAB PO PRN (13:46)
== END 2023-12-18 14:37 ==
LOC: EC 17:26 → 6NMEDSUR 21:31
PROVIDERS: ADMIT Family Medicine; ATTEND Family Medicine
DX: G93.41 Metabolic encephalopathy (principal); N39.0 Urinary tract infection, site not specified; E78.5 Hyperlipidemia, unspecified; F03.90 Unspecified dementia, unspecified severity, without behavioral disturbance, psychotic disturbance, mood disturbance, and anxiety; I10 Essential (primary) hypertension; E03.9 Hypothyroidism, unspecified; I45.10 Unspecified right bundle-branch block; E87.1 Hypo-osmolality and hyponatremia; M51.36 Other intervertebral disc degeneration, lumbar region; Z90.710 Acquired absence of both cervix and uterus; Z87.442 Personal history of urinary calculi; Z87.440 Personal history of urinary (tract) infections; Z82.49 Family history of ischemic heart disease and other diseases of the circulatory system; Z79.82 Long term (current) use of aspirin; Z79.899 Other long term (current) drug therapy
CPT/HCPCS: 96366 ×4; 96372 ×5; 96361 ×2; 96376 ×2; 96365; 96375; 36415; 94760; 93005; 97530 ×2; 97161; 97166; 92610; 80053; 80048; 83605; 83735; 85025 ×2; 81003; 87040; G0378 ×6; J0360; J0696 ×6; J1650 ×5